=== PATIENT | male | born 1965 | race Caucasian/White ===

== ENCOUNTER 2016-09-22 19:15 | Inpatient (IN) | payer OTHER, MEDICAID ==
[~2016-09-22] VITALS: Ht 177.8 cm; Wt 68.3 kg
[2016-09-22 19:18] VITALS: O2SAT 100
[2016-09-22] MEDS ORDERED: DIPHTH/TETANUS/ACEL PERTUSSIS (BOOSTER) 0.5 ML VIAL/PFS IM ONE ×2 (19:19→20:00)
[2016-09-22] MEDS ORDERED: ceFAZolin 2 GM PREMIX 50 ML ONE (19:19)
[2016-09-22] MEDS ORDERED: ONDANSETRON HCL 4 MG/2 ML VIAL ONE (19:21)
[2016-09-22] MEDS ORDERED: MORPHINE SULFATE 8 MG/ML INJ ONE (19:21)
[2016-09-22] MEDS ORDERED: IOHEXOL 350 MG/ML 10 ML VIAL (for RAD DIAG) IV ONE (19:34)
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
[2016-09-22 19:39] LABS: I-STAT POTASSIUM 2.8 MMOL/L (3.5-4.9)
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
[2016-09-22 19:45] LABS: AUTOMATED NEUTROPHIL # 8.8 TH/MM3 (1.8-7.7); BASOPHIL # 0.1 TH/MM3 (0-0.2); BASOPHIL % 0.5 % (0.0-2.0); EOSINOPHIL # 0.2 TH/MM3 (0-0.4); EOSINOPHIL % 1.1 % (0.0-4.0); HEMATOCRIT 39.5 % (39.0-51.0); HEMO FLAGS DIFF FINAL; LYMPH % 27.8 % (9.0-44.0); LYMPHOCYTE # 3.8 TH/MM3 (1.0-4.8); MEAN CELL VOLUME 86.7 FL (80.0-100.0); MEAN CORPUSCULAR HEMOGLOBIN 30.2 PG (27.0-34.0); MEAN CORPUSCULAR HGB CONC 34.9 % (32.0-36.0); MONO % 5.9 % (0.0-8.0); NEUT % 64.7 % (16.0-70.0); PLATELET COUNT 452 TH/MM3 (150-450); RED BLOOD COUNT 4.55 MIL/MM3 (4.50-5.90); RED CELL DISTRIBUTION WIDTH 13.7 % (11.6-17.2); WHITE BLOOD COUNT 13.6 TH/MM3 (4.0-11.0)
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
[2016-09-22 20:00] VITALS: BP 138/76; PULSE 52; RESP 24; TEMP 96.3; O2SAT 97
[2016-09-22] MEDS ORDERED: SODIUM CHLOR 0.9% 1000 ML INJ 1,000 ML IV ONE (20:00)
[2016-09-22] MEDS ORDERED: ceFAZolin 2 GM PREMIX 50 ML IV STA (20:00)
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
[2016-09-22] MEDS ORDERED: PROPOFOL 1000 MG/100 ML INJ 100 ML ONE (20:12)
[2016-09-22] MEDS ORDERED: MIDAZOLAM HCL 5 MG/ML VIAL (1 ML) ONE (20:12)
[2016-09-22 20:18] LABS: APTT (PATIENT) 26.3 SEC (24.3-30.1)
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
[2016-09-22 21:52] LABS: BLOOD, URINE NEG (NEG); GLUCOSE,URINE NEG (NEG); KETONE, URINE NEG (NEG); MUCUS URINE FEW /lpf (OCC); NITRITE,URINE NEG (NEG); PH, URINE 5.5 (5.0-8.5); URINE COLOR LIGHT-YELLOW (YELLW/STRAW)
[2016-09-22 21:53] LABS: COMMENT (UR) CATH-CULT NOT IND; CULTURE IF INDICATED CATH CULTURE NOT IND
[2016-09-22 21:54] LABS: AMPHETAMINE, URINE NEG (NEG); BARBITURATES, URINE NEG (NEG); COCAINE, URINE NEG (NEG)
[2016-09-22 22:00] VITALS: PULSE 52
[2016-09-22] MEDS: SODIUM CHLOR 0.9% 1000 ML INJ 1,000 ML IV SCH (22:32)
[2016-09-22] MEDS ORDERED: fentaNYL DRIP 250 ML IV SCH (22:45)
[2016-09-22] MEDS ORDERED: Post-op Orders (for Pharmacy) MISC XX ONE (22:45)
[2016-09-22] MEDS ORDERED: NALOXONE HCL 0.4 MG/ML AMP IV PRN (22:45)
[2016-09-22] MEDS ORDERED: PROPOFOL 1000 MG/100 ML INJ 100 ML IV SCH (22:45)
[2016-09-22] MEDS ORDERED: SODIUM CHLORIDE 0.9% FLUSH 5 ML FLUSH IVF PRN (22:45)
[2016-09-22] MEDS: PANTOPRAZOLE SODIUM 40 MG VIAL IV SCH (23:00)
[2016-09-23] VITALS (18 sets, daily range): BP systolic 106–146; BP diastolic 63–82; PULSE 48–69; RESP 16–19; TEMP 96.8–98.6; O2SAT 98–100
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
[2016-09-23] MEDS ORDERED: POTASSIUM PHOSPHATE MONOBASIC 500 MG TAB PO/TUBE PRN (00:30)
[2016-09-23] MEDS ORDERED: MAGNESIUM OXIDE 400 MG TAB PO PRN (00:30)
[2016-09-23] MEDS ORDERED: POTASSIUM CHLOR 20 MEQ PREMIX 100 ML IV PRN ×2 (00:30)
[2016-09-23] MEDS ORDERED: POTASSIUM PHOSPHATE MONOBASIC 500 MG TAB PO PRN (00:30)
[2016-09-23] MEDS ORDERED: MAGNESIUM SULFATE INJ 4 GM in SODIUM CHLORIDE 0.9% INJ 92 ML IV PRN (00:30)
[2016-09-23] MEDS ORDERED: POTASSIUM CHLOR 40 MEQ PREMIX 100 ML IV PRN ×2 (00:30)
[2016-09-23] MEDS ORDERED: MAGNESIUM SULFATE INJ 2 GM in SODIUM CHLORIDE 0.9% INJ 96 ML IV PRN (00:30)
[2016-09-23 01:19] LABS: ALT (GPT) 29 U/L (12-78); ANION GAP 11 MEQ/L (5-15); AST (GOT) 45 U/L (15-37); BICARBONATE 24.4 MEQ/L (21.0-32.0); BLOOD UREA NITROGEN 10 MG/DL (7-18); CHLORIDE 106 MEQ/L (98-107); GLOMERULAR FILTRATION RATE 108 ML/MIN (>89); POTASSIUM 3.2 MEQ/L (3.5-5.1); SODIUM (NA) 141 MEQ/L (136-145)
[2016-09-23 01:20] LABS: ALKALINE PHOSPHATASE 51 U/L (45-117); TOTAL BILIRUBIN ADULT 0.4 MG/DL (0.2-1.0)
[2016-09-23] MEDS ORDERED: RESP: ALBUTEROL 2.5 MG/3 ML NEB (PRN) NEB (01:30)
[2016-09-23 01:54] LABS: BLOOD GAS BASE EXCESS 0.1 mmol/L (-2-2); BLOOD GAS CARBOXYHEMOGLOBIN 1.9 % (0-4); BLOOD GAS HCO3 25 mmol/L (22-26); BLOOD GAS METHEMOGLOBIN 0.8 % (0-2); BLOOD GAS O2 HGB SATURATION 97 % (90-100); BLOOD GAS OXYGEN CONTENT 17.7 Vol % (12.0-20.0); BLOOD GAS PCO2 42 mmHg (38-42); BLOOD GAS PO2 155 mmHg (61-120); BLOOD GAS TOTAL HGB 12.8 G/DL (12.0-16.0); CRITICAL VALUE NO; OXYGEN DEVICE VENTILATOR; TEMP CORR TO 98.6
[2016-09-23 01:55] LABS: DRAW SITE LT RADIAL; FIO2 45 %; NUMBER OF ARTERIAL PUNCTURES 1; STAT YES; ULNAR PULSE PRESENT; VENT SETTINGS VAC16/550/PEEP5
[2016-09-23 02:00] LABS: CREATINE KINASE 990 U/L (39-308)
[2016-09-23] MEDS: AMPICILLIN-SULBACTAM INJ 1,500 MG in SODIUM CHLORIDE 0.9% INJ 100 ML IV SCH ×4 (02:00→21:02)
[2016-09-23] MEDS ORDERED: DEXTROSE 50% IN WATER 50 ML VIAL(D50) IV PUSH PRN (02:00)
[2016-09-23] MEDS ORDERED: GLUCAGON 1 MG/ML VIAL OTHER PRN (02:00)
[2016-09-23 02:30] LABS: CKMB 11.1 NG/ML (0.5-3.6)
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
[2016-09-23] MEDS: RESP: ALBUTEROL 2.5 MG/IPRATROPIUM 0.5 MG NEB (SCH) NEB ×4 (03:56→20:04)
[2016-09-23 04:32] LABS: BICARBONATE 26.2 MEQ/L (21.0-32.0); POTASSIUM 3.7 MEQ/L (3.5-5.1)
[2016-09-23 04:35] LABS: INDIRECT BILIRUBIN 0.3 MG/DL (0.0-0.8); TOTAL BILIRUBIN ADULT 0.4 MG/DL (0.2-1.0)
[2016-09-23 04:47] LABS: AUTOMATED NEUTROPHIL # 14.8 TH/MM3 (1.8-7.7); BASOPHIL % 0.2 % (0.0-2.0); EOSINOPHIL % 0.2 % (0.0-4.0); HEMATOCRIT 39.7 % (39.0-51.0); HEMO FLAGS DIFF FINAL; LYMPH % 7.3 % (9.0-44.0); LYMPHOCYTE # 1.3 TH/MM3 (1.0-4.8); MEAN CELL VOLUME 89.3 FL (80.0-100.0); MEAN CORPUSCULAR HGB CONC 33.6 % (32.0-36.0); MONO % 9.2 % (0.0-8.0); NEUT % 83.1 % (16.0-70.0); PLATELET COUNT 282 TH/MM3 (150-450); RED BLOOD COUNT 4.44 MIL/MM3 (4.50-5.90); WHITE BLOOD COUNT 17.8 TH/MM3 (4.0-11.0)
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
[2016-09-23] MEDS: SODIUM CHLOR 0.9% 1000 ML INJ 1,000 ML IV SCH ×3 (07:11→23:11)
[2016-09-23] MEDS: INSULIN ASPART SUPPLEMENTAL SCALE SQ SCH ×3 (08:00→18:00)
[2016-09-23] MEDS: CHLORHEXIDINE 0.12% (ORAL KIT) 15 ML CUP MT SCH ×2 (08:00→21:03)
[2016-09-23] MEDS: fentaNYL DRIP 250 ML IV SCH (08:25)
[2016-09-23] MEDS: PROPOFOL 1000 MG/100 ML INJ 100 ML IV SCH ×4 (08:25→22:50)
[2016-09-23] MEDS: DOCUSATE SODIUM 50 MG/SENNA 8.6 MG TAB PO SCH ×2 (08:28→21:03)
[2016-09-23] MEDS: SODIUM CHLORIDE 0.9% FLUSH 5 ML FLUSH IVF SCH ×2 (08:28→21:03)
[2016-09-23] MEDS ORDERED: SENNOSIDES SYRUP 8.8 MG/5 ML CUP TUBE SCH (09:00)
[2016-09-23] MEDS ORDERED: DEXAMETHASONE SOD PHOS 4 MG/ML VIAL IV ONE (09:00)
[2016-09-23] MEDS ORDERED: DOCUSATE SODIUM 100 MG/10 ML UDC PO SCH (09:00)
--- NOTE | 2016-09-23 10:31 | OTSOAPIP ---
TIME SESSION COMPLETED: 1000 NURSING REQUESTED TO HOLD PATIENT HAS STRICT SPINAL PRECAUTIONS AND IS SCHEDULED FOR OPERATING ROOM TODAY. Therapist: Leslie Santoyo OTR/L Signature on file
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
--- NOTE | 2016-09-23 14:43 | EKG ---
Date Performed: 09/23/2016 Time Performed: 07:54:20 PTAGE: 89 years EKG: Sinus rhythm Septal T wave changes are nonspecific Borderline ECG NO PREVIOUS TRACING DOCTOR: Jacoby Denis Interpretating Date/Time 09/23/2016 14:39:26
--- NOTE | 2016-09-23 17:42 | EC ---
Study Study Date:09/23/2016 STUDY CONCLUSIONS SUMMARY LEFT VENTRICLE: The cavity size was normal. Wall thickness was normal. Systolic function was normal. The estimated ejection fraction was in the range of 55% to 60%. Wall motion was normal; there were no regional wall motion abnormalities. If LV function is below 40, please consider prescribing an ACEI or ARB or document rationale for non-use. PROCEDURE DATA STUDY STATUS: Elective. Procedure: Transthoracic echocardiography. Image quality was suboptimal. The study was technically limited due to poor acoustic window availability. Scanning was performed from the parasternal, apical, and subcostal acoustic windows. Study completion: The patient tolerated the procedure well. Transthoracic echocardiography. M-mode, complete 2D, complete spectral Doppler, and color Doppler. Patient status: Inpatient. CARDIAC ANATOMY LEFT VENTRICLE: The cavity size was normal. Wall thickness was normal. Systolic function was normal. The estimated ejection fraction was in the range of 55% to 60%. Wall motion was normal; there were no regional wall motion abnormalities. AORTIC VALVE: Trileaflet; normal thickness leaflets. Doppler: Transvalvular velocity was within the normal range. There was no stenosis. No regurgitation. AORTA: Aortic root: The aortic root was normal in size. MITRAL VALVE: Structurally normal valve. Doppler: Transvalvular velocity was within the normal range. There was no evidence for stenosis. Trace regurgitation. Valve area by pressure half-time: 4.15cm^2. Peak gradient: 2mm Hg (D). LEFT ATRIUM: The atrium was normal in size. RIGHT VENTRICLE: The cavity size was normal. Wall thickness was normal. PULMONIC VALVE: Doppler: Transvalvular velocity was within the normal range. There was no evidence for stenosis. No regurgitation. TRICUSPID VALVE: Structurally normal valve. Doppler: Transvalvular velocity was within the normal range. Trace regurgitation. PULMONARY ARTERY: The main pulmonary artery was normal-sized. Systolic pressure was within the normal range. RIGHT ATRIUM: The atrium was normal in size. PERICARDIUM: There was no pericardial effusion. SYSTEMIC VEINS: Inferior vena cava: The vessel was normal in size. BASIC MEASUREMENTS ADULT Normal Left ventricle LV internal dimension, ED, chordal level, 47.3 mm 43-52 PLAX LV internal dimension, ES, chordal level, 34.7 mm 23-38 PLAX Fractional shortening, chordal level, PLAX *27 % >29 LV posterior wall thickness, ED 9.05 mm IVS/LVPW ratio, ED 1 <1.3 Ventricular septum Septal thickness, ED 9.07 mm Aortic valve Leaflet separation 16 mm 15-26 Right ventricle RV internal dimension, ED, PLAX 23.5 mm 19-38 BASIC MEASUREMENTS ADULT Normal Left ventricle LV internal dimension, ED 44.9 mm 37-56 LV internal dimension, ES 31.3 mm Fractional shortening 30 % 29-45 LV posterior wall, ED *12.6 mm 6-11 Septal/posterior wall ratio, ED 1 Relative wall thickness, ED *0.56 <0.45 Volume, ED, Teichholz 92 ml Volume, ES, Teichholz 38.8 ml Ejection fraction, Teichholz *57.8 % 64-83 Stroke volume, Teichholz 53.2 ml Wall mass 211.9 g Ventricular septum Septal thickness, ED 12.6 mm Aortic valve Leaflet separation 16 mm 15-26 Aorta Root diameter, ED 35 mm 20-37 DOPPLER MEASUREMENTS ADULT Normal Aortic valve Peak velocity, S 97.7 cm/s Mitral valve Peak E-wave velocity 75 cm/s Peak A-wave velocity 45.9 cm/s Pressure half-time 53 ms Peak gradient, D 2 mm Hg Peak E/A ratio 1.6 Valve area, pressure half-time 4.15 cm^2 Pulmonic valve Peak velocity, S 93.7 cm/s LEGEND: Mean values are shown as u=mean value. Asterisk (*) villanueva values outside specified normal range. Prepared and signed by Yossi Oscar [id number]
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
--- NOTE | 2016-09-23 19:54 | PD.OP ---
Operative Report Date of Surgery: Sep 23, 2016 Preoperative Diagnosis: (1) Traumatic brain injury (2) Cervical spine fracture Postoperative Diagnosis: (1) Traumatic brain injury (2) Cervical spine fracture Procedure: Halo placement Surgeon: Dwain Garcia Emergency Man(s): development technical lead Operation and Findings: The procedure was performed in the surgical intensive care unit Telephone consent was obtained from the patient's family Appropriate time out procedure was performed with all personal present and in agreement The bilateral occipital region was shaved with the clippers and the frontal and occipital regions sterilely prepped with Betadine. 1% Xylocaine with epinephrine was used for local infiltration with the pin placement sites The undersigned maintained control of the head ring which was held in proper position and see frontal and occipital pins were simultaneously advanced into the cranium using finger pressure, followed by final tightening with the torque wrench. The locking nuts were secured. With the undersigned maintaining control of the head and neck in the cervical collar in place, the patient's head and chest were gently lifted to allow placement of the posterior halo vest. The anterior vest was then secured. The posts were then placed into the anterior and posterior halo vest and ring and secured with the torque wrench with the undersigned maintaining control of the head and neck The position of the head and neck were then checked with x-ray and felt to be satisfactory. Final check was made of all halo connections to certain that they were secure. There is no blood loss. No specimen was sent The patient's neurologic function remained stable following the procedure. Dwain Garcia MD Sep 23, 2016 19:53
[2016-09-23] MEDS: PANTOPRAZOLE SODIUM 40 MG VIAL IV SCH (21:03)
[2016-09-23] MEDS: MAGNESIUM HYDROXIDE SUSP 30 ML CUP PO SCH (21:03)
[2016-09-24] VITALS (19 sets, daily range): BP systolic 91–131; BP diastolic 53–78; PULSE 47–81; RESP 16; TEMP 97–98.5; O2SAT 40–100
[2016-09-24] MEDS: AMPICILLIN-SULBACTAM INJ 1,500 MG in SODIUM CHLORIDE 0.9% INJ 100 ML IV SCH ×4 (02:00→20:00)
[2016-09-24] MEDS: PROPOFOL 1000 MG/100 ML INJ 100 ML IV SCH ×4 (02:50→16:04)
[2016-09-24] MEDS: RESP: ALBUTEROL 2.5 MG/IPRATROPIUM 0.5 MG NEB (SCH) NEB ×4 (03:22→22:00)
[2016-09-24 04:06] LABS: AUTOMATED NEUTROPHIL # 8.2 TH/MM3 (1.8-7.7); BASOPHIL % 0.2 % (0.0-2.0); EOSINOPHIL % 0.1 % (0.0-4.0); HEMATOCRIT 33.2 % (39.0-51.0); HEMO FLAGS DIFF FINAL; LYMPH % 13.7 % (9.0-44.0); LYMPHOCYTE # 1.5 TH/MM3 (1.0-4.8); MEAN CELL VOLUME 88.5 FL (80.0-100.0); MEAN CORPUSCULAR HEMOGLOBIN 30.4 PG (27.0-34.0); MEAN CORPUSCULAR HGB CONC 34.3 % (32.0-36.0); MONO % 11.3 % (0.0-8.0); NEUT % 74.7 % (16.0-70.0); PLATELET COUNT 280 TH/MM3 (150-450); RED BLOOD COUNT 3.75 MIL/MM3 (4.50-5.90); RED CELL DISTRIBUTION WIDTH 14.2 % (11.6-17.2); WHITE BLOOD COUNT 10.9 TH/MM3 (4.0-11.0)
[2016-09-24 04:25] LABS: APTT (PATIENT) 27.8 SEC (24.3-30.1); PROTHROMBIN TIME - PATIENT 10.9 SEC (9.8-11.6)
[2016-09-24 04:31] LABS: ANION GAP 6 MEQ/L (5-15); AST (GOT) 30 U/L (15-37); BICARBONATE 28.1 MEQ/L (21.0-32.0); BLOOD UREA NITROGEN 7 MG/DL (7-18); CHLORIDE 110 MEQ/L (98-107); GLOMERULAR FILTRATION RATE 141 ML/MIN (>89); MAGNESIUM 2.3 MG/DL (1.5-2.5); POTASSIUM 3.9 MEQ/L (3.5-5.1); SODIUM (NA) 144 MEQ/L (136-145)
[2016-09-24 04:34] LABS: ALKALINE PHOSPHATASE 39 U/L (45-117); ALT (GPT) 22 U/L (12-78); TOTAL BILIRUBIN ADULT 0.3 MG/DL (0.2-1.0)
--- NOTE | 2016-09-24 05:06 | RADRPT ---
EXAM DATE/TIME: 09/24/2016 03:47 [facility] COMPARISON: CHEST SINGLE AP, September 22, 2016, 19:13. INDICATIONS : Shortness of breath. MEDICAL HISTORY : None. SURGICAL HISTORY : None. ENCOUNTER: Initial ACUITY: 3 days PAIN SCORE: Non-responsive. LOCATION: Bilateral chest FINDINGS: Single AP view of the chest. Endotracheal tube is in place with the tip 5 cm above the jace. Nasoga stric tube is in place with the tip in the stomach. Mild medial left lung base atelectasis. Lungs are otherwise clear. Cardiomediastinal silhouette within normal limits. No evidence of pleural effusion or pneumothorax. CONCLUSION: Endotracheal tube and nasogastric tube in place. Mild left lung atelectasis. Frederick Birch MD on September 24, 2016 at 5:02 Board Certified Radiologist. This report was verified electronically.
[2016-09-24 05:18] LABS: BLOOD GAS BASE EXCESS 1.3 mmol/L (-2-2); BLOOD GAS CARBOXYHEMOGLOBIN 0.8 % (0-4); BLOOD GAS HCO3 26 mmol/L (22-26); BLOOD GAS METHEMOGLOBIN 0.9 % (0-2); BLOOD GAS O2 HGB SATURATION 98 % (90-100); BLOOD GAS OXYGEN CONTENT 15.9 Vol % (12.0-20.0); BLOOD GAS PCO2 43 mmHg (38-42); BLOOD GAS PO2 187 mmHg (61-120); BLOOD GAS TOTAL HGB 11.3 G/DL (12.0-16.0); CRITICAL VALUE NO; OXYGEN DEVICE VENTILATOR; TEMP CORR TO 98.6
[2016-09-24 05:19] LABS: DRAW SITE RT RADIAL; FIO2 40 %; NUMBER OF ARTERIAL PUNCTURES 1; STAT NO; ULNAR PULSE PRESENT; VENT SETTINGS PRVC/AC
[2016-09-24] MEDS: INSULIN ASPART SUPPLEMENTAL SCALE SQ SCH ×4 (06:00→18:00)
[2016-09-24] MEDS: CHLORHEXIDINE 0.12% (ORAL KIT) 15 ML CUP MT SCH ×2 (08:00→20:00)
[2016-09-24] MEDS: SODIUM CHLORIDE 0.9% FLUSH 5 ML FLUSH IVF SCH ×2 (08:42→21:00)
[2016-09-24] MEDS ORDERED: LACTATED RINGER'S 1000 ML INJ 1,000 ML IV ONE (11:43)
[2016-09-24] MEDS ORDERED: NORMOSOL R INJ 1,000 ML IV ONE (11:43)
[2016-09-24] MEDS ORDERED: PROPOFOL 200 MG/20 ML AMP IV ONE (11:43)
--- NOTE | 2016-09-24 12:21 | RADRPT ---
EXAM DATE/TIME: 09/24/2016 10:45 [facility] COMPARISON: CT FACIAL BONES W/O CONTRAST, September 22, 2016, 19:26. CT CERVICAL SPINE W/O CONTRAST, September 22, 2016, 19:29. CT BRAIN W/O CONTRAST, September 22, 2016, 19:26. INDICATIONS : Evaluate brain injury RADIATION DOSE: 72.72 CTDIvol (mGy) MEDICAL HISTORY : Non-responsive. SURGICAL HISTORY : Non-responsive. ENCOUNTER: Subsequent ACUITY: 1 day PAIN SCALE: Non-responsive LOCATION: cranial TECHNIQUE: Multiple contiguous axial images were obtained of the head. Using automated exposure control and adj ustment of the mA and/or kV according to patient size, radiation dose was kept as low as reasonably a chievable to obtain optimal diagnostic quality images. FINDINGS: There continues to be a right subdural hemorrhage measuring up to 9 mm in thickness. This is seen al sadi the right lateral frontal region and extends to the inferior aspect of the right frontal lobe. T his was present previously. It is slightly larger on the current exam. The ventricles and cortical sulci are within normal limits. No new areas of hemorrhage are seen. The basal cisterns are patent. The patient is in a halo causing some streak artifact. There is fracturing of the maxillary bones bilaterally. The maxillary bones are nearly totally opacified. There is a right orbital floor fract ure. There is fracturing of the right zygomatic arch. There is a fracture of the right squamosal te mporal bone. It is nondisplaced. CONCLUSION: 1. Persistent extraaxial hemorrhage seen over the right lateral frontal lobe and extending to the un sarah surface of the posterior frontal lobe. This appears slightly larger on the current exam measurin g up to 9 mm. There is some fracturing of the squamosal temporal bone in this region. Given the fra cture, some component of an epidural hemorrhage cannot be excluded. 2. No new areas of hemorrhage or mass effect are seen. 3. Facial fractures. Jens Sheldon MD on September 24, 2016 at 12:05 Board Certified Radiologist. This report was verified electronically.
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
--- NOTE | 2016-09-24 14:02 | OTSOAPIP ---
NIMA ZELAYA REQUESTS TO HOLD PATIENT GOING TO OR THIS PM. WILL REATTEMPT TOMORROW. Therapist: Leslie Santoyo OTR/L Signature on file
[2016-09-24] MEDS: SODIUM CHLOR 0.9% 1000 ML INJ 1,000 ML IV SCH ×2 (15:11→23:11)
[2016-09-24] MEDS: fentaNYL DRIP 250 ML IV SCH (16:05)
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
[2016-09-24] MEDS ORDERED: methylPREDNISolone SOD SUCC 125 MG/2 ML VIAL ONE (20:55)
[2016-09-24] MEDS ORDERED: BACITRACIN TOP OINT 15 GM TUBE ONE (20:55)
[2016-09-24] MEDS ORDERED: LIDOCAINE 2%/EPINEPHrine 1:100,000 30ML MDV ONE (20:55)
[2016-09-24] MEDS ORDERED: ceFAZolin INJ 1,000 MG VIAL ONE (20:55)
[2016-09-24] MEDS ORDERED: MICROFIBRILLAR COLLAGEN HEMOSTAT 1 GM PKT ONE (20:55)
[2016-09-24] MEDS: DOCUSATE SODIUM 50 MG/SENNA 8.6 MG TAB PO SCH (21:00)
[2016-09-24] MEDS: MAGNESIUM HYDROXIDE SUSP 30 ML CUP PO SCH (21:00)
[2016-09-24] MEDS ORDERED: CHLORHEXIDINE GLUCONATE 0.12% 30 ML CUP ONE (21:37)
[2016-09-24] MEDS ORDERED: BALANCED SALT SOLN OPHT IRRIG 15 ML BTL ONE (21:37)
[2016-09-24] MEDS ORDERED: fentaNYL CITRATE 250 MCG/5 ML AMP ONE (22:33)
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
[2016-09-24] MEDS: PANTOPRAZOLE SODIUM 40 MG VIAL IV SCH (23:00)
[2016-09-25] VITALS (17 sets, daily range): BP systolic 106–130; BP diastolic 48–63; PULSE 65–84; RESP 12–16; TEMP 97–98.7; O2SAT 94–99
[2016-09-25] MEDS ORDERED: MICROFIBRILLAR COLLAGEN HEMOSTAT 1 GM PKT TOPICAL ONE (01:05)
--- NOTE | 2016-09-25 01:42 | HHI.PR ---
Immediate Post Op Note Procedure Date: Sep 25, 2016 Pre Op Diagnosis: [place] 1 maxillary fracture right orbital floor fracture right ZMC fracture nasal bone fractures Post Op Diagnosis: luis e Surgeon: Isael Lindsey Fuel Management Handler(s): zulema perez Procedure: ORIF [place] 1 maxillary fracture ORIF R zmc fracture reconstruction of right orbital floor fracture with KLS resorbable mesh closed reduction of nasal bone fractures Anesthesia: General, Local (2%lidocaine with 1:000,000 epix 7 cc) Drains: None Patient to: ISC Implant/Devices: SEE IMPLANT LOG (if applicable) Date/Time of Procedure: SEE SURGICAL CARE RECORD Isael Lindsey DMD Sep 25, 2016 01:42
[2016-09-25] MEDS ORDERED: fentaNYL CITRATE 250 MCG/5 ML AMP ONE (01:44)
[2016-09-25] MEDS: AMPICILLIN-SULBACTAM INJ 1,500 MG in SODIUM CHLORIDE 0.9% INJ 100 ML IV SCH ×4 (02:00→20:00)
[2016-09-25] MEDS: methylPREDNISolone SOD SUCC 125 MG/2 ML VIAL IV SCH ×3 (03:00→15:47)
[2016-09-25] MEDS: RESP: ALBUTEROL 2.5 MG/IPRATROPIUM 0.5 MG NEB (SCH) NEB ×4 (03:10→19:30)
[2016-09-25] MEDS ORDERED: methylPREDNISolone ACETATE 80 MG/ML VIAL IM ONE (04:00)
[2016-09-25 04:44] LABS: AUTOMATED NEUTROPHIL # 13.3 TH/MM3 (1.8-7.7); BASOPHIL % 0.1 % (0.0-2.0); HEMATOCRIT 31.7 % (39.0-51.0); HEMO FLAGS DIFF FINAL; LYMPH % 4.5 % (9.0-44.0); LYMPHOCYTE # 0.7 TH/MM3 (1.0-4.8); MEAN CELL VOLUME 87.8 FL (80.0-100.0); MEAN CORPUSCULAR HEMOGLOBIN 29.7 PG (27.0-34.0); MEAN CORPUSCULAR HGB CONC 33.8 % (32.0-36.0); MONO % 4.3 % (0.0-8.0); NEUT % 91.1 % (16.0-70.0); PLATELET COUNT 270 TH/MM3 (150-450); RED BLOOD COUNT 3.61 MIL/MM3 (4.50-5.90); RED CELL DISTRIBUTION WIDTH 14.3 % (11.6-17.2); WHITE BLOOD COUNT 14.6 TH/MM3 (4.0-11.0)
[2016-09-25 05:07] LABS: ANION GAP 7 MEQ/L (5-15); AST (GOT) 28 U/L (15-37); BICARBONATE 25.9 MEQ/L (21.0-32.0); BLOOD UREA NITROGEN 7 MG/DL (7-18); CHLORIDE 112 MEQ/L (98-107); MAGNESIUM 2.1 MG/DL (1.5-2.5); POTASSIUM 3.7 MEQ/L (3.5-5.1); SODIUM (NA) 145 MEQ/L (136-145)
[2016-09-25 05:12] LABS: ALKALINE PHOSPHATASE 36 U/L (45-117); ALT (GPT) 20 U/L (12-78); GLOMERULAR FILTRATION RATE 136 ML/MIN (>89); TOTAL BILIRUBIN ADULT 0.3 MG/DL (0.2-1.0)
[2016-09-25 05:57] LABS: BLOOD GAS BASE EXCESS 0.8 mmol/L (-2-2); BLOOD GAS HCO3 25 mmol/L (22-26); BLOOD GAS O2 HGB SATURATION 96 % (90-100); BLOOD GAS OXYGEN CONTENT 14.3 Vol % (12.0-20.0); BLOOD GAS PCO2 39 mmHg (38-42); BLOOD GAS PO2 93 mmHg (61-120); BLOOD GAS TOTAL HGB 10.5 G/DL (12.0-16.0); CRITICAL VALUE NO; OXYGEN DEVICE VENTILATOR; TEMP CORR TO 98.6
[2016-09-25 05:58] LABS: DRAW SITE ART LINE; FIO2 40 %; STAT NO; ULNAR PULSE PRESENT
[2016-09-25] MEDS: INSULIN ASPART SUPPLEMENTAL SCALE SQ SCH ×4 (06:00→17:46)
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
[2016-09-25] MEDS: SODIUM CHLOR 0.9% 1000 ML INJ 1,000 ML IV SCH ×3 (07:11→23:11)
[2016-09-25] MEDS: CHLORHEXIDINE 0.12% (ORAL KIT) 15 ML CUP MT SCH ×2 (08:00→20:00)
--- NOTE | 2016-09-25 08:03 | HHI.PR ---
Subjective Remarks POD 1 s/p ORIF [place] 1 maxillary fracture/right zmc fracture reconstruction of right orbital floor fracture with mesh closed reduction of nasal bone fractures pt seen and examined., trached, vented, sedated c collar/halo in palace Objective Vital Signs Date Time Temp Pulse Resp B/P Pulse Ox O2 Delivery O2 Flow Rate FiO2 09/25/16 07:15 97 40 09/25/16 06:00 72 09/25/16 04:21 96 40 09/25/16 04:00 70 09/25/16 04:00 40 09/25/16 04:00 97.0 70 16 108/48 96 09/25/16 02:01 96 40 09/25/16 02:00 68 09/24/16 21:00 60 09/24/16 20:50 100 100 09/24/16 20:27 100 40 09/24/16 20:00 54 09/24/16 20:00 40 09/24/16 20:00 97.8 54 16 131/78 100 09/24/16 20:00 Mechanical Ventilator 09/24/16 18:00 54 09/24/16 16:17 100 40 09/24/16 16:00 97.9 55 16 107/63 100 09/24/16 16:00 40 09/24/16 16:00 55 09/24/16 14:00 53 09/24/16 12:00 98.2 56 16 91/53 100 09/24/16 12:00 56 09/24/16 12:00 40 09/24/16 12:00 100 40 09/24/16 10:30 100 100 09/24/16 10:00 81 09/24/16 09:30 40 40 09/24/16 08:00 97.0 52 16 102/68 100 09/24/16 08:00 51 09/24/16 08:00 40 I/O 09/24/16 09/24/16 09/24/16 09/25/16 09/25/16 09/25/16 07:00 15:00 23:00 07:00 15:00 23:00 Intake Total 1106 ml 2012 ml 921 ml 506 ml Output Total 300 ml 550 ml 250 ml 550 ml Balance 806 ml 1463 ml 671 ml -44 ml Intake IV Total 1106 ml 2012 ml 921 ml 506 ml Output Urine Total 300 ml 425 ml 250 ml 550 ml Stool Total 0 ml Gastric Drainage Total 0 ml 125 ml 0 ml 0 ml # Bowel Movements 0 0 0 Result Diagram: 09/25/1642909/25/16429 Objective Remarks b/l periorbital edema, right side greater than left right sided periorbital ecchymosis, eye swollen shut, chemosis noted facial edema nasal splint/reduction in position intraorally - tissues pink/well perfused all wound margins well approximated/sutures intact hemostatic all wounds Assessment and Plan Assessment and Plan POD 1 s/p ORIF [place] 1 maxillary fracture/right zmc fracture reconstruction of right orbital floor fracture with mesh closed reduction of nasal bone fractures continue supportive care, abx peridex oral care Isael Lindsey DMD Sep 25, 2016 08:03
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
[2016-09-25] MEDS: SODIUM CHLORIDE 0.9% FLUSH 5 ML FLUSH IVF SCH ×2 (08:22→21:00)
[2016-09-25] MEDS: DOCUSATE SODIUM 50 MG/SENNA 8.6 MG TAB PO SCH ×2 (08:22→21:00)
[2016-09-25] MEDS: SODIUM PHOSPHATE INJ 30 MMOL in SODIUM CHLOR 0.9% 250 ML INJ 240 ML IV PRN (09:09)
[2016-09-25] MEDS ORDERED: GELATIN 12 MM/7 MM FOAM ONE (10:07)
[2016-09-25] MEDS ORDERED: GELFOAM SIZE 100 TOPICAL ONE (10:15)
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
[2016-09-25] MEDS: PROPOFOL 1000 MG/100 ML INJ 100 ML IV SCH (16:47)
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
[2016-09-25] MEDS: MAGNESIUM HYDROXIDE SUSP 30 ML CUP PO SCH (21:00)
[2016-09-25] MEDS: PANTOPRAZOLE SODIUM 40 MG VIAL IV SCH (23:00)
[2016-09-26] VITALS (18 sets, daily range): BP systolic 93–133; BP diastolic 52–84; PULSE 56–74; RESP 14–16; TEMP 97.9–98.5; O2SAT 96–100
[2016-09-26] MEDS: AMPICILLIN-SULBACTAM INJ 1,500 MG in SODIUM CHLORIDE 0.9% INJ 100 ML IV SCH ×4 (02:00→21:19)
[2016-09-26] MEDS: RESP: ALBUTEROL 2.5 MG/IPRATROPIUM 0.5 MG NEB (SCH) NEB ×3 (03:00→19:59)
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
[2016-09-26 04:48] LABS: AUTOMATED NEUTROPHIL # 16.2 TH/MM3 (1.8-7.7); BASOPHIL % 0.1 % (0.0-2.0); HEMATOCRIT 30.8 % (39.0-51.0); HEMO FLAGS DIFF FINAL; LYMPH % 7.5 % (9.0-44.0); LYMPHOCYTE # 1.4 TH/MM3 (1.0-4.8); MEAN CELL VOLUME 88.5 FL (80.0-100.0); MEAN CORPUSCULAR HEMOGLOBIN 29.3 PG (27.0-34.0); MEAN CORPUSCULAR HGB CONC 33.1 % (32.0-36.0); MONO % 8.5 % (0.0-8.0); NEUT % 83.9 % (16.0-70.0); PLATELET COUNT 244 TH/MM3 (150-450); RED BLOOD COUNT 3.48 MIL/MM3 (4.50-5.90); RED CELL DISTRIBUTION WIDTH 14.3 % (11.6-17.2); WHITE BLOOD COUNT 19.3 TH/MM3 (4.0-11.0)
--- NOTE | 2016-09-26 05:03 | RADRPT ---
EXAM DATE/TIME: 09/26/2016 04:04 [facility] COMPARISON: CHEST SINGLE AP, September 25, 2016, 4:45. INDICATIONS : Shortness of breath. MEDICAL HISTORY : None. SURGICAL HISTORY : None. ENCOUNTER: Subsequent ACUITY: 4 - 6 days PAIN SCORE: Non-responsive. LOCATION: chest FINDINGS: Tracheostomy in satisfactory position. Slight increase in left basilar consolidation atelectasis or l ast day. Minimal right basilar opacity is stable. No pneumothorax. CONCLUSION: 1. Slight increase in left lower lobe atelectasis or consolidation over the last day. Tracheostomy un changed. Vignesh Flores MD on September 26, 2016 at 5:01 Board Certified Radiologist. This report was verified electronically.
[2016-09-26 05:22] LABS: ALKALINE PHOSPHATASE 36 U/L (45-117); ALT (GPT) 20 U/L (12-78); ANION GAP 5 MEQ/L (5-15); AST (GOT) 32 U/L (15-37); BICARBONATE 29.5 MEQ/L (21.0-32.0); BLOOD UREA NITROGEN 11 MG/DL (7-18); CHLORIDE 112 MEQ/L (98-107); GLOMERULAR FILTRATION RATE 141 ML/MIN (>89); MAGNESIUM 2.4 MG/DL (1.5-2.5); POTASSIUM 3.6 MEQ/L (3.5-5.1); SODIUM (NA) 146 MEQ/L (136-145); TOTAL BILIRUBIN ADULT 0.3 MG/DL (0.2-1.0)
[2016-09-26] MEDS: INSULIN ASPART SUPPLEMENTAL SCALE SQ SCH ×4 (06:00→18:00)
[2016-09-26 06:05] LABS: BLOOD GAS BASE EXCESS 1.3 mmol/L (-2-2); BLOOD GAS CARBOXYHEMOGLOBIN 0.9 % (0-4); BLOOD GAS HCO3 25 mmol/L (22-26); BLOOD GAS METHEMOGLOBIN 0.9 % (0-2); BLOOD GAS O2 HGB SATURATION 98 % (90-100); BLOOD GAS OXYGEN CONTENT 14.1 Vol % (12.0-20.0); BLOOD GAS PCO2 35 mmHg (38-42); BLOOD GAS PO2 164 mmHg (61-120); BLOOD GAS TOTAL HGB 10.1 G/DL (12.0-16.0); CRITICAL VALUE NO; OXYGEN DEVICE VENTILATOR; TEMP CORR TO 98.6
[2016-09-26 06:06] LABS: FIO2 40 %; VENT SETTINGS PRVC
[2016-09-26 06:07] LABS: DRAW SITE ART LINE; STAT NO; ULNAR PULSE PRESENT
[2016-09-26] MEDS: SODIUM PHOSPHATE INJ 30 MMOL in SODIUM CHLOR 0.9% 250 ML INJ 240 ML IV PRN (06:28)
[2016-09-26] MEDS: SODIUM CHLOR 0.9% 1000 ML INJ 1,000 ML IV SCH ×3 (07:11→23:11)
[2016-09-26] MEDS: PROPOFOL 1000 MG/100 ML INJ 100 ML IV SCH ×5 (07:43→21:20)
[2016-09-26] MEDS: CHLORHEXIDINE 0.12% (ORAL KIT) 15 ML CUP MT SCH ×2 (07:43→21:19)
[2016-09-26] MEDS: SODIUM CHLORIDE 0.9% FLUSH 5 ML FLUSH IVF SCH ×2 (08:44→21:00)
[2016-09-26] MEDS: DOCUSATE SODIUM 50 MG/SENNA 8.6 MG TAB PO SCH ×2 (08:44→21:19)
[2016-09-26] MEDS ORDERED: BISACODYL 10 MG SUPP RECTAL ONE (08:45)
[2016-09-26] MEDS ORDERED: HALOPERIDOL LACTATE 5 MG/ML AMP IV PUSH ONE (09:00)
[2016-09-26] MEDS ORDERED: HALOPERIDOL LACTATE 5 MG/ML AMP IV PRN (10:30)
[2016-09-26] MEDS: VALPROATE INJ 250 MG in SODIUM CHLORIDE 0.9% INJ 100 ML IV SCH ×2 (11:16→21:19)
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
--- NOTE | 2016-09-26 17:05 | RADRPT ---
EXAM DATE/TIME: 09/26/2016 16:43 [facility] COMPARISON: CT LUMBAR SPINE W/O CONTRAST, September 22, 2016, 19:34. INDICATIONS : Nasogastric tube placement. MEDICAL HISTORY : Unobtainable. SURGICAL HISTORY : Unobtainable. ENCOUNTER: Initial ACUITY: 1 day PAIN SCORE: Non-responsive. LOCATION: Bilateral abdomen. FINDINGS: Examination of the abdomen demonstrates a normal bowel gas pattern. There is a Dobbhoff tube in the upper stomach. No free air is identified. No organomegaly is evident. There is a compression deformi ty at L2. CONCLUSION: No evidence of obstruction. Dobbhoff tube in the upper stomach. Jens Sheldon MD on September 26, 2016 at 17:03 Board Certified Radiologist. This report was verified electronically.
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
[2016-09-26] MEDS: PANTOPRAZOLE SODIUM 40 MG VIAL IV SCH (21:20)
[2016-09-26] MEDS: MAGNESIUM HYDROXIDE SUSP 30 ML CUP PO SCH (21:20)
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
[2016-09-27] VITALS (18 sets, daily range): BP systolic 104–112; BP diastolic 61–68; PULSE 54–78; RESP 14; TEMP 98–99.8; O2SAT 95–100
[2016-09-27] MEDS: RESP: ALBUTEROL 2.5 MG/IPRATROPIUM 0.5 MG NEB (SCH) NEB ×4 (01:06→20:17)
[2016-09-27] MEDS: AMPICILLIN-SULBACTAM INJ 1,500 MG in SODIUM CHLORIDE 0.9% INJ 100 ML IV SCH ×4 (02:19→20:42)
[2016-09-27] MEDS: fentaNYL DRIP 250 ML IV SCH ×2 (02:19→11:07)
[2016-09-27] MEDS: PROPOFOL 1000 MG/100 ML INJ 100 ML IV SCH ×6 (02:21→20:44)
[2016-09-27] MEDS: INSULIN ASPART SUPPLEMENTAL SCALE SQ SCH ×4 (06:00→16:21)
[2016-09-27 06:17] LABS: AUTOMATED NEUTROPHIL # 8.8 TH/MM3 (1.8-7.7); BASOPHIL % 0.2 % (0.0-2.0); EOSINOPHIL # 0.1 TH/MM3 (0-0.4); EOSINOPHIL % 0.6 % (0.0-4.0); HEMATOCRIT 32.2 % (39.0-51.0); HEMO FLAGS DIFF FINAL; LYMPH % 16.1 % (9.0-44.0); LYMPHOCYTE # 1.9 TH/MM3 (1.0-4.8); MEAN CELL VOLUME 89.8 FL (80.0-100.0); MEAN CORPUSCULAR HEMOGLOBIN 29.6 PG (27.0-34.0); MONO % 7.8 % (0.0-8.0); NEUT % 75.3 % (16.0-70.0); PLATELET COUNT 238 TH/MM3 (150-450); RED BLOOD COUNT 3.59 MIL/MM3 (4.50-5.90); RED CELL DISTRIBUTION WIDTH 14.4 % (11.6-17.2); WHITE BLOOD COUNT 11.7 TH/MM3 (4.0-11.0)
[2016-09-27 06:47] LABS: ALT (GPT) 27 U/L (12-78); ANION GAP 8 MEQ/L (5-15); AST (GOT) 36 U/L (15-37); BICARBONATE 28.5 MEQ/L (21.0-32.0); BLOOD UREA NITROGEN 12 MG/DL (7-18); CHLORIDE 112 MEQ/L (98-107); GLOMERULAR FILTRATION RATE 144 ML/MIN (>89); MAGNESIUM 2.3 MG/DL (1.5-2.5); POTASSIUM 3.3 MEQ/L (3.5-5.1); SODIUM (NA) 148 MEQ/L (136-145)
[2016-09-27 06:50] LABS: ALKALINE PHOSPHATASE 41 U/L (45-117); TOTAL BILIRUBIN ADULT 0.4 MG/DL (0.2-1.0)
--- NOTE | 2016-09-27 07:21 | RADRPT ---
EXAM DATE/TIME: 09/27/2016 04:17 [place] COMPARISON: CHEST SINGLE AP, September 26, 2016, 4:04. INDICATIONS : Shortness of breath. MEDICAL HISTORY : None. SURGICAL HISTORY : None. ENCOUNTER: Subsequent ACUITY: 4 - 6 days PAIN SCORE: Non-responsive. LOCATION: Bilateral chest FINDINGS: Tracheostomy in satisfactory position. Feeding tube tip in the stomach. Mild basilar airspace disease similar to September 26. No new infiltrate or effusion. CONCLUSION: 1. Feeding tube placed with tip in stomach. Tracheostomy unchanged. Basilar airspace disease stable. Vignesh Flores MD on September 27, 2016 at 7:18 Board Certified Radiologist. This report was verified electronically.
[2016-09-27] MEDS: SODIUM CHLOR 0.9% 1000 ML INJ 1,000 ML IV SCH (07:59)
[2016-09-27] MEDS: DOCUSATE SODIUM 50 MG/SENNA 8.6 MG TAB PO SCH (07:59)
[2016-09-27] MEDS: SODIUM CHLORIDE 0.9% FLUSH 5 ML FLUSH IVF SCH ×2 (07:59→20:43)
[2016-09-27] MEDS: CHLORHEXIDINE 0.12% (ORAL KIT) 15 ML CUP MT SCH ×2 (07:59→20:42)
[2016-09-27] MEDS: VALPROATE INJ 250 MG in SODIUM CHLORIDE 0.9% INJ 100 ML IV SCH ×2 (08:00→20:43)
[2016-09-27] MEDS: POTASSIUM PHOSPHATE INJ 30 MMOL in SODIUM CHLOR 0.9% 250 ML INJ 250 ML IV PRN (09:11)
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
[2016-09-27] MEDS: THIAMINE HCL 100 MG TAB PO SCH (11:06)
[2016-09-27] MEDS: ARTIFICIAL TEARS OPTH SOLN 15 ML BTL EACH EYE SCH ×3 (11:07→22:03)
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
[2016-09-27 16:45] LABS: POTASSIUM 3.6 MEQ/L (3.5-5.1)
[2016-09-27 19:52] LABS: POTASSIUM 3.1 MEQ/L (3.5-5.1)
[2016-09-27] MEDS: MAGNESIUM HYDROXIDE SUSP 30 ML CUP PO SCH (20:43)
[2016-09-27] MEDS: LACTULOSE SYRUP 20 GM/30 ML CUP PO SCH (20:43)
[2016-09-27] MEDS ORDERED: SENNOSIDES 8.6 MG TAB PO SCH (21:00)
[2016-09-27] MEDS: PANTOPRAZOLE SODIUM 40 MG VIAL IV SCH (22:02)
[2016-09-28] VITALS (17 sets, daily range): BP systolic 104–133; BP diastolic 66–87; PULSE 55–73; RESP 15–23; TEMP 97.9–99.2; O2SAT 95–98
[2016-09-28] MEDS: POTASSIUM PHOSPHATE INJ 30 MMOL in SODIUM CHLOR 0.9% 250 ML INJ 250 ML IV PRN (00:36)
[2016-09-28] MEDS: PROPOFOL 1000 MG/100 ML INJ 100 ML IV SCH ×3 (01:32→08:54)
[2016-09-28] MEDS: AMPICILLIN-SULBACTAM INJ 1,500 MG in SODIUM CHLORIDE 0.9% INJ 100 ML IV SCH ×4 (01:32→21:56)
[2016-09-28] MEDS: RESP: ALBUTEROL 2.5 MG/IPRATROPIUM 0.5 MG NEB (SCH) NEB ×4 (03:57→21:18)
[2016-09-28 04:31] LABS: AUTOMATED NEUTROPHIL # 7.6 TH/MM3 (1.8-7.7); BASOPHIL % 0.2 % (0.0-2.0); EOSINOPHIL # 0.2 TH/MM3 (0-0.4); EOSINOPHIL % 1.8 % (0.0-4.0); HEMATOCRIT 33.8 % (39.0-51.0); LYMPH % 13.4 % (9.0-44.0); LYMPHOCYTE # 1.3 TH/MM3 (1.0-4.8); MEAN CELL VOLUME 88.8 FL (80.0-100.0); MEAN CORPUSCULAR HEMOGLOBIN 30.5 PG (27.0-34.0); MEAN CORPUSCULAR HGB CONC 34.4 % (32.0-36.0); MONO % 8.6 % (0.0-8.0); PLATELET COUNT 219 TH/MM3 (150-450); RED CELL DISTRIBUTION WIDTH 14.3 % (11.6-17.2)
[2016-09-28 04:32] LABS: HEMO FLAGS AUTO DIFF
[2016-09-28 05:15] LABS: ALT (GPT) 30 U/L (12-78); ANION GAP 7 MEQ/L (5-15); AST (GOT) 28 U/L (15-37); BICARBONATE 27.9 MEQ/L (21.0-32.0); BLOOD UREA NITROGEN 10 MG/DL (7-18); CHLORIDE 112 MEQ/L (98-107); GLOMERULAR FILTRATION RATE 196 ML/MIN (>89); MAGNESIUM 2.2 MG/DL (1.5-2.5); POTASSIUM 3.9 MEQ/L (3.5-5.1); SODIUM (NA) 147 MEQ/L (136-145)
[2016-09-28 05:18] LABS: ALKALINE PHOSPHATASE 45 U/L (45-117); TOTAL BILIRUBIN ADULT 0.3 MG/DL (0.2-1.0)
[2016-09-28 05:19] LABS: CORRECTED NUCLEATED RBC 1 /100 WBC (0-0); POLYS (SEG NEUTROPHILS) 70 % (16-70); WBC DIFF SAMPLE 100
[2016-09-28 05:21] LABS: PLATELET ESTIMATE SMEAR NORMAL (NORMAL); PLATELET MORPHOLOGY NORMAL (NORMAL); SCAN/DIFF FINAL DIFF MANUAL
[2016-09-28 05:22] LABS: ACANTHOCYTES OCC (NORMAL)
[2016-09-28] MEDS: INSULIN ASPART SUPPLEMENTAL SCALE SQ SCH ×5 (05:47→23:43)
[2016-09-28] MEDS: ARTIFICIAL TEARS OPTH SOLN 15 ML BTL EACH EYE SCH ×3 (05:47→21:57)
--- NOTE | 2016-09-28 06:28 | RADRPT ---
EXAM DATE/TIME: 09/28/2016 04:42 [facility] COMPARISON: CHEST SINGLE AP, September 27, 2016, 4:17. INDICATIONS : Shortness of breath. MEDICAL HISTORY : None. SURGICAL HISTORY : None. ENCOUNTER: Subsequent ACUITY: 4 - 6 days PAIN SCORE: Non-responsive. LOCATION: Bilateral chest FINDINGS: Feeding tube enters stomach. Tracheostomy in satisfactory position. Basal airspace consolidation, lef t greater than right similar to September 27. Small effusions. CONCLUSION: 1. Stable exam compared with September 27. Vignesh Flores MD on September 28, 2016 at 6:26 Board Certified Radiologist. This report was verified electronically.
[2016-09-28] MEDS: CHLORHEXIDINE 0.12% (ORAL KIT) 15 ML CUP MT SCH ×2 (08:00→21:57)
[2016-09-28 08:14] LABS: POTASSIUM 3.9 MEQ/L (3.5-5.1)
[2016-09-28] MEDS: VALPROATE INJ 250 MG in SODIUM CHLORIDE 0.9% INJ 100 ML IV SCH (08:53)
[2016-09-28] MEDS: LACTULOSE SYRUP 20 GM/30 ML CUP PO SCH ×3 (08:54→23:43)
[2016-09-28] MEDS: SODIUM CHLORIDE 0.9% FLUSH 5 ML FLUSH IVF SCH ×2 (08:54→21:57)
[2016-09-28] MEDS: THIAMINE HCL 100 MG TAB PO SCH (08:54)
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
[2016-09-28] MEDS ORDERED: SENNOSIDES SYRUP 8.8 MG/5 ML CUP PO ONE (12:45)
[2016-09-28] MEDS ORDERED: MINERAL OIL LIQUID 30 ML CUP PO ONE (12:45)
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
[2016-09-28] MEDS: ONDANSETRON HCL 4 MG/2 ML VIAL IV PRN (15:41)
--- NOTE | 2016-09-28 19:17 | HHI.PR ---
Subjective Remarks POD 1 s/p ORIF Lefort 3 maxillary fracture/right zmc fracture reconstruction of right orbital floor fracture with mesh closed reduction of nasal bone fractures pt seen and examined., trached, vented, sedated halo in place Objective Vital Signs Date Time Temp Pulse Resp B/P Pulse Ox O2 Delivery O2 Flow Rate FiO2 09/28/16 18:00 63 09/28/16 16:00 98.0 64 20 133/78 96 09/28/16 16:00 30 09/28/16 16:00 64 09/28/16 14:00 73 09/28/16 12:00 97.9 72 23 121/87 95 09/28/16 12:00 30 09/28/16 12:00 72 09/28/16 10:00 64 09/28/16 08:12 30 09/28/16 08:12 97 Ventilator 30 09/28/16 08:12 96 30 09/28/16 08:00 30 09/28/16 08:00 98.1 55 18 132/69 96 09/28/16 08:00 63 09/28/16 06:00 68 09/28/16 04:00 40 09/28/16 04:00 98.9 66 15 104/66 98 09/28/16 04:00 66 09/28/16 03:57 98 30 09/28/16 02:00 62 09/28/16 00:28 97 30 09/28/16 00:00 40 09/28/16 00:00 64 09/28/16 00:00 99.2 64 18 119/76 95 09/27/16 22:00 68 09/27/16 20:17 99 30 09/27/16 20:00 70 09/27/16 20:00 40 09/27/16 20:00 99.8 66 14 106/67 100 I/O 09/27/16 09/27/16 09/27/16 09/28/16 09/28/16 09/28/16 07:00 15:00 23:00 07:00 15:00 23:00 Intake Total 1529 ml 1460 ml 1134 ml 871 ml 920 ml Output Total 600 ml 650 ml 470 ml 550 ml 850 ml Balance 929 ml 810 ml 664 ml 321 ml 70 ml Intake IV Total 1325 ml 1400 ml 1074 ml 811 ml 437 ml Tube Feeding 144 ml 60 ml 60 ml 60 ml 383 ml Tube Irrigant 60 ml Other 100 ml Output Urine Total 600 ml 650 ml 470 ml 550 ml 850 ml # Bowel Movements 0 0 0 0 0 Result Diagram: 09/28/16 0310 09/28/16 0733 Objective Remarks significant decrease in facial edema, PERRLA, EOMI appears intact following commands better at the beginning of exam, shows thumbs up right sided periorbital ecchymosis/edema decreased, chemosis decreasing nasal splint/reduction in position, og tube noted intraorally - tissues pink/well perfused all wound margins well approximated/sutures intact hemostatic all wounds bite appears to line up, but pt not very cooperative to exam at this point Assessment and Plan Assessment and Plan POD 4 s/p ORIF Lefort 1 maxillary fracture/right zmc fracture reconstruction of right orbital floor fracture with mesh closed reduction of nasal bone fractures continue supportive care peridex oral care d/w pt's brother Yousuf the severe nature of the pt's injury, the treatment, prognosis will follow Isael Lindsey DMD Sep 28, 2016 19:16
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
[2016-09-28] MEDS: VALPROATE INJ 500 MG in SODIUM CHLORIDE 0.9% INJ 100 ML IV SCH (21:56)
[2016-09-28] MEDS: MAGNESIUM HYDROXIDE SUSP 30 ML CUP PO SCH (21:57)
[2016-09-28] MEDS: DOCUSATE SODIUM 100 MG/10 ML UDC PO SCH (21:57)
[2016-09-28] MEDS: PANTOPRAZOLE SODIUM 40 MG VIAL IV SCH (21:58)
[2016-09-29] VITALS (20 sets, daily range): BP systolic 118–158; BP diastolic 74–91; PULSE 60–94; RESP 14–26; TEMP 97.9–98.5; O2SAT 93–99
[2016-09-29] MEDS: AMPICILLIN-SULBACTAM INJ 1,500 MG in SODIUM CHLORIDE 0.9% INJ 100 ML IV SCH ×4 (01:13→20:43)
[2016-09-29] MEDS: PROPOFOL 1000 MG/100 ML INJ 100 ML IV SCH (02:09)
[2016-09-29] MEDS: RESP: ALBUTEROL 2.5 MG/IPRATROPIUM 0.5 MG NEB (SCH) NEB ×4 (03:28→20:09)
[2016-09-29] MEDS: ONDANSETRON HCL 4 MG/2 ML VIAL IV PRN (04:08)
[2016-09-29 04:12] LABS: AUTOMATED NEUTROPHIL # 9.5 TH/MM3 (1.8-7.7); BASOPHIL # 0.1 TH/MM3 (0-0.2); BASOPHIL % 0.6 % (0.0-2.0); EOSINOPHIL # 0.2 TH/MM3 (0-0.4); EOSINOPHIL % 1.3 % (0.0-4.0); HEMATOCRIT 32.5 % (39.0-51.0); HEMO FLAGS DIFF FINAL; LYMPH % 9.5 % (9.0-44.0); LYMPHOCYTE # 1.1 TH/MM3 (1.0-4.8); MEAN CELL VOLUME 88.3 FL (80.0-100.0); MEAN CORPUSCULAR HEMOGLOBIN 30.9 PG (27.0-34.0); MONO % 8.5 % (0.0-8.0); NEUT % 80.1 % (16.0-70.0); PLATELET COUNT 209 TH/MM3 (150-450); RED BLOOD COUNT 3.68 MIL/MM3 (4.50-5.90); RED CELL DISTRIBUTION WIDTH 14.4 % (11.6-17.2); WHITE BLOOD COUNT 11.8 TH/MM3 (4.0-11.0)
[2016-09-29 04:39] LABS: BICARBONATE 25.4 MEQ/L (21.0-32.0); CALCIUM-PROTEIN CORRECTED 8.4 MG/DL (8.5-10.1); MAGNESIUM 2.1 MG/DL (1.5-2.5); TOTAL BILIRUBIN ADULT 0.7 MG/DL (0.2-1.0)
--- NOTE | 2016-09-29 05:15 | RADRPT ---
EXAM DATE/TIME: 09/29/2016 04:07 [place] COMPARISON: CHEST SINGLE AP, September 28, 2016, 4:42. INDICATIONS : Shortness of breath. MEDICAL HISTORY : None. SURGICAL HISTORY : None. ENCOUNTER: Subsequent ACUITY: 1 week PAIN SCORE: Non-responsive. LOCATION: Bilateral chest FINDINGS: Tracheostomy tube and feeding tube noted. EKG leads are present. There is patchy left basilar airspac e disease. This is slightly improved. External fixation hardware. Left mid posterior rib fracture. CONCLUSION: Improved aeration left lung base. Fred Chapman MD on September 29, 2016 at 5:12 Board Certified Radiologist. This report was verified electronically.
[2016-09-29] MEDS: LACTULOSE SYRUP 20 GM/30 ML CUP PO SCH ×3 (05:38→14:59)
[2016-09-29] MEDS: INSULIN ASPART SUPPLEMENTAL SCALE SQ SCH (05:39)
[2016-09-29] MEDS: ARTIFICIAL TEARS OPTH SOLN 15 ML BTL EACH EYE SCH ×2 (05:40→13:01)
[2016-09-29] MEDS: fentaNYL DRIP 250 ML IV SCH (06:13)
[2016-09-29 06:18] LABS: BLOOD GAS BASE EXCESS 1.9 mmol/L (-2-2); BLOOD GAS CARBOXYHEMOGLOBIN 1.3 % (0-4); BLOOD GAS HCO3 26 mmol/L (22-26); BLOOD GAS METHEMOGLOBIN 0.7 % (0-2); BLOOD GAS O2 HGB SATURATION 85 % (90-100); BLOOD GAS OXYGEN CONTENT 13.6 Vol % (12.0-20.0); BLOOD GAS PCO2 40 mmHg (38-42); BLOOD GAS PO2 51 mmHg (61-120); BLOOD GAS TOTAL HGB 11.5 G/DL (12.0-16.0); CRITICAL VALUE YES; OXYGEN DEVICE VENTILATOR; TEMP CORR TO 98.6
[2016-09-29 06:19] LABS: DRAW SITE LT RADIAL; FIO2 30 %; NUMBER OF ARTERIAL PUNCTURES 2; STAT NO; ULNAR PULSE PRESENT; VENT SETTINGS CPAP PS10 PEEP5
[2016-09-29] MEDS: SODIUM CHLORIDE 0.9% FLUSH 5 ML FLUSH IVF SCH ×2 (08:05→21:13)
[2016-09-29] MEDS: DOCUSATE SODIUM 100 MG/10 ML UDC PO SCH ×2 (08:05→21:00)
[2016-09-29] MEDS: SENNOSIDES SYRUP 8.8 MG/5 ML CUP PO SCH (08:05)
[2016-09-29] MEDS: THIAMINE HCL 100 MG TAB PO SCH (08:13)
[2016-09-29] MEDS: CHLORHEXIDINE 0.12% (ORAL KIT) 15 ML CUP MT SCH ×2 (08:13→20:44)
[2016-09-29] MEDS: VALPROATE INJ 500 MG in SODIUM CHLORIDE 0.9% INJ 100 ML IV SCH ×2 (08:13→21:13)
[2016-09-29] MEDS ORDERED: FUROSEMIDE 40 MG/4 ML VIAL IV PUSH ONE (11:00)
[2016-09-29] MEDS ORDERED: DEXTROSE 50% IN WATER 50 ML VIAL(D50) IV PUSH PRN (11:00)
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
[2016-09-29] MEDS: INSULIN NovoLIN REGULAR SUPPLEMENTAL SCALE SQ SCH ×2 (11:37→17:06)
[2016-09-29] MEDS: ENOXAPARIN SODIUM 40 MG/0.4 ML SYRINGE SQ SCH (11:45)
[2016-09-29] MEDS: METOCLOPRAMIDE HCL 10 MG/2 ML VIAL IV PUSH SCH ×2 (11:46→20:43)
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
--- NOTE | 2016-09-29 13:44 | HHI.PR ---
Subjective Remarks POD 5 s/p ORIF Lefort 3 maxillary fracture/right zmc fracture reconstruction of right orbital floor fracture with mesh closed reduction of nasal bone fractures pt seen and examined., trached, vented, sedated halo in place sitting up in bed Objective Vital Signs Date Time Temp Pulse Resp B/P Pulse Ox O2 Delivery O2 Flow Rate FiO2 09/29/16 12:00 40 09/29/16 12:00 94 09/29/16 12:00 98.1 63 16 158/78 96 09/29/16 10:00 73 09/29/16 09:31 96 T-piece 8.00 35 09/29/16 09:00 62 09/29/16 08:00 30 09/29/16 08:00 97.9 62 26 118/74 99 09/29/16 08:00 64 09/29/16 07:36 98 40 09/29/16 06:00 87 09/29/16 04:29 95 30 09/29/16 04:00 30 09/29/16 04:00 78 09/29/16 04:00 98.5 78 22 143/91 93 09/29/16 02:00 70 09/29/16 01:44 94 30 09/29/16 00:00 98.2 73 16 127/81 96 09/29/16 00:00 69 09/29/16 00:00 30 09/28/16 22:32 96 30 09/28/16 22:00 73 09/28/16 20:00 69 09/28/16 20:00 98.4 70 17 115/71 97 09/28/16 20:00 30 09/28/16 19:52 97 30 09/28/16 18:00 63 09/28/16 16:00 98.0 64 20 133/78 96 09/28/16 16:00 30 09/28/16 16:00 64 09/28/16 14:00 73 I/O 09/28/16 09/28/16 09/28/16 09/29/16 09/29/16 09/29/16 07:00 15:00 23:00 07:00 15:00 23:00 Intake Total 871 ml 920 ml 665 ml 915 ml Output Total 550 ml 850 ml 1400 ml 1000 ml Balance 321 ml 70 ml -735 ml -85 ml Intake IV Total 811 ml 437 ml 315 ml 555 ml Tube Feeding 60 ml 383 ml 150 ml 300 ml Other 100 ml 200 ml 60 ml Output Urine Total 550 ml 850 ml 1400 ml 1000 ml # Bowel Movements 0 0 0 2 Result Diagram: 09/29/1632409/29/16324 Objective Remarks significant decrease in facial edema, PERRLA communicates by showing thumbs up right sided periorbital ecchymosis/edema decreased, chemosis decreasing nasal splint not in position position, og tube attached - appears to have the nasal splint lifted off the og tube intraorally - tissues pink/well perfused all wound margins well approximated/sutures intact hemostatic all wounds bite appears to line up Assessment and Plan Assessment and Plan POD 5 s/p ORIF Lefort 1 maxillary fracture/right zmc fracture reconstruction of right orbital floor fracture with mesh closed reduction of nasal bone fractures continue supportive care peridex oral care removed old nasal splint, new nasal splint placed continue Unasyn x 2 days Isael Lindsey DMD Sep 29, 2016 13:44
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
[2016-09-29] MEDS: MAGNESIUM HYDROXIDE SUSP 30 ML CUP PO SCH (21:00)
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
[2016-09-29] MEDS ORDERED: LORazepam 2 MG/ML VIAL ONE (21:58)
[2016-09-29] MEDS ORDERED: MIDAZOLAM HCL 5 MG/ML VIAL (1 ML) ONE (23:02)
[2016-09-29] MEDS ORDERED: PROPOFOL 1000 MG/100 ML INJ 100 ML ONE (23:02)
[2016-09-30] VITALS (21 sets, daily range): BP systolic 113–160; BP diastolic 69–92; PULSE 60–110; RESP 14–22; TEMP 98.2–99.2; O2SAT 93–100
[2016-09-30] MEDS: ARTIFICIAL TEARS OPTH SOLN 15 ML BTL EACH EYE SCH ×4 (00:24→22:00)
[2016-09-30] MEDS: PANTOPRAZOLE SODIUM 40 MG VIAL IV SCH ×2 (00:28→23:00)
[2016-09-30] MEDS ORDERED: MIDAZOLAM HCL 2 MG/2 ML VIAL IV PUSH ONE (01:00)
[2016-09-30] MEDS ORDERED: fentaNYL CITRATE 250 MCG/5 ML AMP IV PUSH ONE (01:00)
[2016-09-30] MEDS ORDERED: PROPOFOL 1000 MG/100 ML INJ 100 ML IV SCH (01:00)
--- NOTE | 2016-09-30 01:15 | PD.PROCEDR ---
Procedure Note Procedure Date: 09/30/16 Procedure: Fiberoptic bronchoscopy Indication: Patient with acute onset of hypoxia, some improvement after RN suctioned, concerned for ongoing mucous plug. Details of procedure: Procedure was performed emergently as patient had hypoxia and concern for mucous plug. The patient was preoxygenated with 100% FiO2 via tracheostomy tube and sedated with fentanyl 100 g mcg IV, Versed 5 mg IV, and propofol 50 g per KG per minute. I entered the endotracheal tube with a flexible bronchoscope. The bronchoscope was advanced into all pulmonary subsegments. Minimal clear secretions suctioned. No obvious mucous plug. He tolerated procedure well without apparent complication. Following procedure, patient had improved oxygenation and was weaned back down to 40% and able to tolerate CPAP. Melyssa Gibson MD Sep 30, 2016 01:15 the bronchoscope. All lung segments were visually inspected and were cleared of any significant blood clots or mucus. The patient tolerated the procedure well without any apparent complications. A stat chest x-ray was ordered. Melyssa Gibson MD Sep 30, 2016 01:15
[2016-09-30] MEDS: RESP: ALBUTEROL 2.5 MG/IPRATROPIUM 0.5 MG NEB (SCH) NEB ×4 (03:03→20:09)
[2016-09-30] MEDS: AMPICILLIN-SULBACTAM INJ 1,500 MG in SODIUM CHLORIDE 0.9% INJ 100 ML IV SCH ×4 (03:22→20:11)
[2016-09-30] MEDS: METOCLOPRAMIDE HCL 10 MG/2 ML VIAL IV PUSH SCH ×3 (04:00→20:00)
--- NOTE | 2016-09-30 05:20 | RADRPT ---
EXAM DATE/TIME: 09/30/2016 04:42 [facility] COMPARISON: CT BRAIN W/O CONTRAST, September 26, 2016, 3:37. INDICATIONS : Follow up hemorrhage. RADIATION DOSE: 56.35 CTDIvol (mGy) MEDICAL HISTORY : Brain injury SURGICAL HISTORY : Tracheostomy ENCOUNTER: Subsequent ACUITY: 3 days PAIN SCALE: Non-responsive LOCATION: cranial TECHNIQUE: Multiple contiguous axial images were obtained of the head. Using automated exposure control and adj ustment of the mA and/or kV according to patient size, radiation dose was kept as low as reasonably a chievable to obtain optimal diagnostic quality images. FINDINGS: Comminuted maxillary sinus wall fractures are seen with plate and screw fixation of the maxilla ident ified, opacification of the bilateral maxillary sinuses, sphenoid sinus air-fluid levels and mucosal thickening and ethmoid air cell opacification as well as comminuted nasal bone fractures. A right gaffney lacey papyracea fracture, and right bilateral pterygoid and zygomatic arch fractures are seen. There is a fracture of the right sphenoid bone and right frontal calvarium extending into the right temporal bone. There is a right frontal extra-axial hemorrhage again seen and obscured by streak artifact from the halo fixation apparatus. A maximal transverse width of 8.2 mm is noted, slightly decreased from previous. This extends anteriorly into the right middle cranial fossa anterior temporal region. There is 4 mm of right to left shift. CONCLUSION: Extensive fracturing as described above. The right frontal temporal subdural hemorrhage is slightly d ecreased in prominence today. Midline shift is noted. Fred Chapman MD on September 30, 2016 at 5:15 Board Certified Radiologist. This report was verified electronically.
[2016-09-30] MEDS: LACTULOSE SYRUP 20 GM/30 ML CUP PO SCH ×4 (05:27→17:39)
--- NOTE | 2016-09-30 05:48 | RADRPT ---
EXAM DATE/TIME: 09/30/2016 03:58 [facility] COMPARISON: CHEST SINGLE AP, September 29, 2016, 4:07. INDICATIONS : Shortness of breath. MEDICAL HISTORY : None. SURGICAL HISTORY : None. ENCOUNTER: Subsequent ACUITY: 1 week PAIN SCORE: Non-responsive. LOCATION: Bilateral chest FINDINGS: Tracheostomy tube. Cardiac. Lungs are clear. CONCLUSION: No significant change has occurred. Fred Chapman MD on September 30, 2016 at 5:46 Board Certified Radiologist. This report was verified electronically.
[2016-09-30] MEDS: INSULIN NovoLIN REGULAR SUPPLEMENTAL SCALE SQ SCH ×4 (06:00→17:39)
[2016-09-30] MEDS: CHLORHEXIDINE 0.12% (ORAL KIT) 15 ML CUP MT SCH ×2 (08:00→20:00)
[2016-09-30 08:06] LABS: AUTOMATED NEUTROPHIL # 7.7 TH/MM3 (1.8-7.7); BASOPHIL % 0.2 % (0.0-2.0); EOSINOPHIL # 0.3 TH/MM3 (0-0.4); EOSINOPHIL % 2.8 % (0.0-4.0); HEMATOCRIT 33.5 % (39.0-51.0); HEMO FLAGS DIFF FINAL; LYMPH % 14.9 % (9.0-44.0); LYMPHOCYTE # 1.6 TH/MM3 (1.0-4.8); MEAN CELL VOLUME 87.1 FL (80.0-100.0); MEAN CORPUSCULAR HGB CONC 34.4 % (32.0-36.0); MONO % 12.3 % (0.0-8.0); NEUT % 69.8 % (16.0-70.0); PLATELET COUNT 228 TH/MM3 (150-450); RED BLOOD COUNT 3.85 MIL/MM3 (4.50-5.90); RED CELL DISTRIBUTION WIDTH 13.9 % (11.6-17.2); WHITE BLOOD COUNT 11.1 TH/MM3 (4.0-11.0)
[2016-09-30] MEDS: THIAMINE HCL 100 MG TAB PO SCH (08:09)
[2016-09-30] MEDS: SENNOSIDES SYRUP 8.8 MG/5 ML CUP PO SCH (08:09)
[2016-09-30] MEDS: DOCUSATE SODIUM 100 MG/10 ML UDC PO SCH ×2 (08:09→20:11)
[2016-09-30] MEDS: SODIUM CHLORIDE 0.9% FLUSH 5 ML FLUSH IVF SCH ×2 (08:09→20:11)
[2016-09-30 08:32] LABS: ALT (GPT) 66 U/L (12-78); ANION GAP 7 MEQ/L (5-15); AST (GOT) 51 U/L (15-37); BICARBONATE 29.5 MEQ/L (21.0-32.0); CHLORIDE 106 MEQ/L (98-107); GLOMERULAR FILTRATION RATE 182 ML/MIN (>89); MAGNESIUM 2.3 MG/DL (1.5-2.5); SODIUM (NA) 142 MEQ/L (136-145)
[2016-09-30 08:34] LABS: ALKALINE PHOSPHATASE 61 U/L (45-117); BLOOD UREA NITROGEN 10 MG/DL (7-18); TOTAL BILIRUBIN ADULT 0.5 MG/DL (0.2-1.0)
[2016-09-30] MEDS: VALPROATE INJ 500 MG in SODIUM CHLORIDE 0.9% INJ 100 ML IV SCH ×2 (09:00→21:00)
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
[2016-09-30] MEDS ORDERED: FUROSEMIDE 40 MG/4 ML VIAL IV PUSH ONE (12:00)
[2016-09-30] MEDS: QUEtiapine FUMARATE 25 MG TAB PO SCH ×2 (12:16→20:11)
[2016-09-30] MEDS: ENOXAPARIN SODIUM 40 MG/0.4 ML SYRINGE SQ SCH (12:16)
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
[2016-09-30] MEDS ORDERED: HALOPERIDOL LACTATE 5 MG/ML AMP IV PRN (14:30)
[2016-09-30] MEDS: ONDANSETRON HCL 4 MG/2 ML VIAL IV PRN (15:43)
[2016-09-30] MEDS: MAGNESIUM HYDROXIDE SUSP 30 ML CUP PO SCH (20:11)
--- NOTE | 2016-09-30 21:20 | HHI.NSPN ---
History Chief Complaint: intubated Interval History 51-year-old male, MCA. Positive LOC. Small subdural hematoma on initial CT. Positive multiple cervical spine fractures including comminuted C2 body fracture 09/23/16: Halo placement 09/25/16: Tracheostomy in place. Remains alert and following commands 09/26/16: Tracheostomy remains. Continues to follow simple commands all extremities 09/30/16: On trach mask. More alert today. Following commands well. Spontaneous eye opening Exam Results Vital Signs Date Time Temp Pulse Resp B/P Pulse Ox O2 Delivery O2 Flow Rate FiO2 09/30/16 20:09 99 40 09/30/16 18:00 75 09/30/16 16:00 98.8 22 141/92 09/30/16 08:45 T-piece 09/29/16 22:17 15.00 Intake and Output 09/29/16 09/29/16 09/30/16 08:00 16:00 00:00 Intake Total 915 ml 562 ml 250 ml Output Total 1000 ml 3200 ml 1300 ml Balance -85 ml -2638 ml -1050 ml Physical Examination Tracheostomy in place Trach mask Halo in good position respirations clear Abdomen soft More awake and alert today. Spontaneous eye opening Signals S Endo and responds to questions Moves all extremities moderate in response to commands Teague's absent bilateral No ankle clonus Pupils 3 mm nonreactive Lab, Micro, Other Results 09/30/2016 CT scan head images reviewed by the undersigned. Mild improvement in right frontotemporal epidural versus subdural hematoma with minimal midline shift, improved compared to prior study. Chest X-Ray 09/30/16 0600 Signed Impressions: Service Date/Time: Friday, September 30, 2016 03:58 - CONCLUSION: No significant change has occurred. Fred Chapman MD Head CT 09/30/16 0000 Signed Impressions: Service Date/Time: Friday, September 30, 2016 04:42 - CONCLUSION: Extensive fracturing as described above. The right frontal temporal subdural hemorrhage is slightly decreased in prominence today. Midline shift is noted. Fred Chapman MD Laboratory Tests Test 09/30/16 07:26 White Blood Count 11.1 TH/MM3 Red Blood Count 3.85 MIL/MM3 Hemoglobin 11.5 GM/DL Hematocrit 33.5 % Mean Corpuscular Volume 87.1 FL Mean Corpuscular Hemoglobin 30.0 PG Mean Corpuscular Hemoglobin 34.4 % Concent Red Cell Distribution Width 13.9 % Platelet Count 228 TH/MM3 Mean Platelet Volume 8.1 FL Neutrophils (%) (Auto) 69.8 % Lymphocytes (%) (Auto) 14.9 % Monocytes (%) (Auto) 12.3 % Eosinophils (%) (Auto) 2.8 % Basophils (%) (Auto) 0.2 % Neutrophils # (Auto) 7.7 TH/MM3 Lymphocytes # (Auto) 1.6 TH/MM3 Monocytes # (Auto) 1.4 TH/MM3 Eosinophils # (Auto) 0.3 TH/MM3 Basophils # (Auto) 0.0 TH/MM3 CBC Comment DIFF FINAL Differential Comment Sodium Level 142 MEQ/L Potassium Level 4.0 MEQ/L Chloride Level 106 MEQ/L Carbon Dioxide Level 29.5 MEQ/L Anion Gap 7 MEQ/L Blood Urea Nitrogen 10 MG/DL Creatinine 0.48 MG/DL Estimat Glomerular Filtration 182 ML/MIN Rate Random Glucose 82 MG/DL Calcium Level 8.2 MG/DL Magnesium Level 2.3 MG/DL Total Bilirubin 0.5 MG/DL Aspartate Amino Transf 51 U/L (AST/SGOT) Alanine Aminotransferase 66 U/L (ALT/SGPT) Alkaline Phosphatase 61 U/L Total Protein 5.9 GM/DL Albumin 2.4 GM/DL Medical Decision Making Impression and Plan Impression: 1. Traumatic brain injury-stable neurologic status. Patient has developed a relatively focal epidural hematoma on follow-up CT scan of 09/24/16, at the right frontotemporal region adjacent to skull fracture, but without significant mass effect and stable on follow-up CT of 09/26/16. 2. Multiple cervical spine fractures including comminuted C2 fracture. Status post halo placement Plan: Stable for transfer to floor when cleared by appointment scheduler Continue physical therapy May mobilize out of bed with halo brace Dwain Garcia MD Sep 30, 2016 21:20
[2016-10-01] VITALS (20 sets, daily range): BP systolic 136–157; BP diastolic 75–80; PULSE 62–110; RESP 10–22; TEMP 98.2–99.4; O2SAT 90–100
[2016-10-01] MEDS: HYDROmorphone HCL PF 1 MG/ML VIAL IV PUSH PRN ×2 (02:27→20:22)
[2016-10-01] MEDS: AMPICILLIN-SULBACTAM INJ 1,500 MG in SODIUM CHLORIDE 0.9% INJ 100 ML IV SCH ×2 (02:28→09:17)
[2016-10-01] MEDS: RESP: ALBUTEROL 2.5 MG/IPRATROPIUM 0.5 MG NEB (SCH) NEB ×4 (03:02→20:06)
[2016-10-01] MEDS: METOCLOPRAMIDE HCL 10 MG/2 ML VIAL IV PUSH SCH ×3 (04:00→20:21)
[2016-10-01 04:15] LABS: AUTOMATED NEUTROPHIL # 10.3 TH/MM3 (1.8-7.7); BASOPHIL # 0.1 TH/MM3 (0-0.2); BASOPHIL % 0.5 % (0.0-2.0); EOSINOPHIL # 0.1 TH/MM3 (0-0.4); EOSINOPHIL % 0.9 % (0.0-4.0); HEMATOCRIT 35.5 % (39.0-51.0); HEMO FLAGS DIFF FINAL; LYMPH % 11.6 % (9.0-44.0); LYMPHOCYTE # 1.6 TH/MM3 (1.0-4.8); MEAN CELL VOLUME 87.4 FL (80.0-100.0); MEAN CORPUSCULAR HEMOGLOBIN 29.1 PG (27.0-34.0); MEAN CORPUSCULAR HGB CONC 33.3 % (32.0-36.0); PLATELET COUNT 263 TH/MM3 (150-450); RED BLOOD COUNT 4.06 MIL/MM3 (4.50-5.90); RED CELL DISTRIBUTION WIDTH 13.8 % (11.6-17.2); WHITE BLOOD COUNT 13.7 TH/MM3 (4.0-11.0)
[2016-10-01] MEDS: ARTIFICIAL TEARS OPTH SOLN 15 ML BTL EACH EYE SCH ×3 (04:20→21:53)
[2016-10-01] MEDS: LACTULOSE SYRUP 20 GM/30 ML CUP PO SCH ×4 (04:20→17:59)
[2016-10-01 04:43] LABS: ALKALINE PHOSPHATASE 69 U/L (45-117); ALT (GPT) 60 U/L (12-78); ANION GAP 8 MEQ/L (5-15); AST (GOT) 42 U/L (15-37); BICARBONATE 27.8 MEQ/L (21.0-32.0); BLOOD UREA NITROGEN 13 MG/DL (7-18); CHLORIDE 105 MEQ/L (98-107); GLOMERULAR FILTRATION RATE 138 ML/MIN (>89); MAGNESIUM 2.3 MG/DL (1.5-2.5); POTASSIUM 4.7 MEQ/L (3.5-5.1); SODIUM (NA) 141 MEQ/L (136-145); TOTAL BILIRUBIN ADULT 0.7 MG/DL (0.2-1.0)
--- NOTE | 2016-10-01 04:47 | RADRPT ---
EXAM DATE/TIME: 10/01/2016 03:35 [facility] COMPARISON: CHEST SINGLE AP, September 30, 2016, 3:58. INDICATIONS : Shortness of breath. MEDICAL HISTORY : None. SURGICAL HISTORY : None. ENCOUNTER: Subsequent ACUITY: 1 week PAIN SCORE: Non-responsive. LOCATION: Bilateral chest FINDINGS: There is basilar airspace disease and atelectasis. Tracheostomy tube and external fixation hardware s een. Heart size normal. CONCLUSION: No significant change has occurred. Fred Chapman MD on October 01, 2016 at 4:45 Board Certified Radiologist. This report was verified electronically.
[2016-10-01] MEDS: INSULIN NovoLIN REGULAR SUPPLEMENTAL SCALE SQ SCH ×4 (06:00→18:00)
[2016-10-01] MEDS: CHLORHEXIDINE 0.12% (ORAL KIT) 15 ML CUP MT SCH ×2 (08:00→20:00)
[2016-10-01] MEDS: SENNOSIDES SYRUP 8.8 MG/5 ML CUP PO SCH (08:10)
[2016-10-01] MEDS: QUEtiapine FUMARATE 25 MG TAB PO SCH (08:10)
[2016-10-01] MEDS: DOCUSATE SODIUM 100 MG/10 ML UDC PO SCH ×2 (08:10→20:21)
[2016-10-01] MEDS: THIAMINE HCL 100 MG TAB PO SCH (08:11)
[2016-10-01] MEDS ORDERED: FUROSEMIDE 40 MG/4 ML VIAL IV PUSH ONE (08:30)
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
[2016-10-01] MEDS: SODIUM CHLORIDE 0.9% FLUSH 5 ML FLUSH IVF SCH ×2 (09:00→20:22)
[2016-10-01] MEDS: VALPROATE INJ 500 MG in SODIUM CHLORIDE 0.9% INJ 100 ML IV SCH ×2 (09:16→20:22)
[2016-10-01] MEDS: OLANZapine ODT 10 MG TAB PO SCH ×2 (09:34→17:04)
[2016-10-01] MEDS: ENOXAPARIN SODIUM 40 MG/0.4 ML SYRINGE SQ SCH (11:46)
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
[2016-10-01 13:17] LABS: BLOOD, URINE NEG (NEG); GLUCOSE,URINE NEG (NEG); KETONE, URINE 10 mg/dL (NEG); NITRITE,URINE NEG (NEG); URINE COLOR LIGHT-YELLOW (YELLW/STRAW)
[2016-10-01 13:22] LABS: COMMENT (UR) CATH-CULT NOT IND; CULTURE IF INDICATED CATH CULTURE NOT IND
--- NOTE | 2016-10-01 19:45 | HHI.NSPN ---
History Chief Complaint: intubated Interval History 51-year-old male, MCA. Positive LOC. Small subdural hematoma on initial CT. Positive multiple cervical spine fractures including comminuted C2 body fracture 09/23/16: Halo placement 09/25/16: Tracheostomy in place. Remains alert and following commands 09/26/16: Tracheostomy remains. Continues to follow simple commands all extremities 09/30/16: On trach mask. More alert today. Following commands well. Spontaneous eye opening 10/01/16: Up partially on tilt table with therapy. Continues to be more alert. Exam Results Vital Signs Date Time Temp Pulse Resp B/P Pulse Ox O2 Delivery O2 Flow Rate FiO2 10/01/16 18:00 83 10/01/16 16:00 40 10/01/16 16:00 99.4 18 148/76 95 10/01/16 12:47 T-piece 6.00 Intake and Output 09/30/16 09/30/16 10/01/16 08:00 16:00 00:00 Intake Total 250 ml 338 ml 294 ml Output Total 1300 ml 2600 ml 1100 ml Balance -1050 ml -2262 ml -806 ml Physical Examination Tracheostomy in place Halo in good position Moderate right periorbital edema and ecchymosis-improving Awake and alert Using sign language to communicate Extraocular movements intact Moves all extremities moderate in response to commands Teague's absent bilateral No ankle clonus Pupils 3 mm nonreactive Lab, Micro, Other Results Laboratory Tests Test 10/01/16 10/01/16 03:40 11:53 White Blood Count 13.7 TH/MM3 Red Blood Count 4.06 MIL/MM3 Hemoglobin 11.8 GM/DL Hematocrit 35.5 % Mean Corpuscular Volume 87.4 FL Mean Corpuscular Hemoglobin 29.1 PG Mean Corpuscular Hemoglobin 33.3 % Concent Red Cell Distribution Width 13.8 % Platelet Count 263 TH/MM3 Mean Platelet Volume 7.9 FL Neutrophils (%) (Auto) 75.0 % Lymphocytes (%) (Auto) 11.6 % Monocytes (%) (Auto) 12.0 % Eosinophils (%) (Auto) 0.9 % Basophils (%) (Auto) 0.5 % Neutrophils # (Auto) 10.3 TH/MM3 Lymphocytes # (Auto) 1.6 TH/MM3 Monocytes # (Auto) 1.6 TH/MM3 Eosinophils # (Auto) 0.1 TH/MM3 Basophils # (Auto) 0.1 TH/MM3 CBC Comment DIFF FINAL Differential Comment Sodium Level 141 MEQ/L Potassium Level 4.7 MEQ/L Chloride Level 105 MEQ/L Carbon Dioxide Level 27.8 MEQ/L Anion Gap 8 MEQ/L Blood Urea Nitrogen 13 MG/DL Creatinine 0.61 MG/DL Estimat Glomerular Filtration 138 ML/MIN Rate Random Glucose 87 MG/DL Calcium Level 9.0 MG/DL Phosphorus Level 2.7 MG/DL Magnesium Level 2.3 MG/DL Total Bilirubin 0.7 MG/DL Aspartate Amino Transf 42 U/L (AST/SGOT) Alanine Aminotransferase 60 U/L (ALT/SGPT) Alkaline Phosphatase 69 U/L Total Protein 6.6 GM/DL Albumin 2.6 GM/DL Urine Color LIGHT-YELLOW Urine Turbidity CLEAR Urine pH 7.0 Urine Specific [place] 1.008 Urine Protein NEG mg/dL Urine Glucose (UA) NEG mg/dL Urine Ketones 10 mg/dL Urine Occult Blood NEG Urine Nitrite NEG Urine Bilirubin NEG Urine Urobilinogen LESS THAN 2.0 MG/DL Urine Leukocyte Esterase NEG Urine RBC 8 /hpf Microscopic Urinalysis Comment CATH-CULT NOT IND Medical Decision Making Impression and Plan Impression: 1. Traumatic brain injury-stable neurologic status. Patient has developed a relatively focal epidural hematoma on follow-up CT scan of 09/24/16, at the right frontotemporal region adjacent to skull fracture, but without significant mass effect and stable on follow-up CT of 09/30/16 2. Multiple cervical spine fractures including comminuted C2 fracture. Status post halo placement Plan: Okay to begin tilt table with therapy. Continue physical therapy May mobilize out of bed with halo brace Dawin Garcia MD Oct 01, 2016 19:45
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
[2016-10-01] MEDS: MAGNESIUM HYDROXIDE SUSP 30 ML CUP PO SCH (21:00)
[2016-10-01] MEDS: PANTOPRAZOLE SODIUM 40 MG VIAL IV SCH (22:09)
[2016-10-02] VITALS (14 sets, daily range): BP systolic 122–149; BP diastolic 67–93; PULSE 58–87; RESP 15–25; TEMP 98.2–99.6; O2SAT 93–97
[2016-10-02] MEDS: OLANZapine ODT 10 MG TAB PO SCH ×3 (02:22→16:43)
[2016-10-02] MEDS: ARTIFICIAL TEARS OPTH SOLN 15 ML BTL EACH EYE SCH ×3 (03:02→21:01)
[2016-10-02] MEDS: METOCLOPRAMIDE HCL 10 MG/2 ML VIAL IV PUSH SCH ×3 (03:02→21:00)
[2016-10-02] MEDS: LACTULOSE SYRUP 20 GM/30 ML CUP PO SCH ×5 (03:03→16:44)
[2016-10-02] MEDS: RESP: ALBUTEROL 2.5 MG/IPRATROPIUM 0.5 MG NEB (SCH) NEB ×4 (03:34→21:32)
[2016-10-02 04:34] LABS: AUTOMATED NEUTROPHIL # 7.8 TH/MM3 (1.8-7.7); BASOPHIL % 0.2 % (0.0-2.0); EOSINOPHIL # 0.2 TH/MM3 (0-0.4); EOSINOPHIL % 2.2 % (0.0-4.0); HEMATOCRIT 34.3 % (39.0-51.0); HEMO FLAGS DIFF FINAL; LYMPH % 12.7 % (9.0-44.0); LYMPHOCYTE # 1.4 TH/MM3 (1.0-4.8); MEAN CORPUSCULAR HEMOGLOBIN 30.3 PG (27.0-34.0); MEAN CORPUSCULAR HGB CONC 35.2 % (32.0-36.0); MONO % 15.5 % (0.0-8.0); NEUT % 69.4 % (16.0-70.0); PLATELET COUNT 295 TH/MM3 (150-450); RED BLOOD COUNT 3.98 MIL/MM3 (4.50-5.90); RED CELL DISTRIBUTION WIDTH 13.5 % (11.6-17.2); WHITE BLOOD COUNT 11.2 TH/MM3 (4.0-11.0)
[2016-10-02 04:52] LABS: ALKALINE PHOSPHATASE 68 U/L (45-117); ALT (GPT) 53 U/L (12-78); ANION GAP 9 MEQ/L (5-15); AST (GOT) 40 U/L (15-37); BICARBONATE 29.1 MEQ/L (21.0-32.0); BLOOD UREA NITROGEN 12 MG/DL (7-18); CHLORIDE 103 MEQ/L (98-107); GLOMERULAR FILTRATION RATE 150 ML/MIN (>89); MAGNESIUM 2.3 MG/DL (1.5-2.5); POTASSIUM 3.7 MEQ/L (3.5-5.1); SODIUM (NA) 141 MEQ/L (136-145); TOTAL BILIRUBIN ADULT 0.7 MG/DL (0.2-1.0)
[2016-10-02] MEDS: INSULIN NovoLIN REGULAR SUPPLEMENTAL SCALE SQ SCH ×4 (05:52→17:41)
[2016-10-02] MEDS: CHLORHEXIDINE 0.12% (ORAL KIT) 15 ML CUP MT SCH ×2 (08:28→20:00)
[2016-10-02] MEDS: VALPROATE INJ 500 MG in SODIUM CHLORIDE 0.9% INJ 100 ML IV SCH (08:28)
[2016-10-02] MEDS: SENNOSIDES SYRUP 8.8 MG/5 ML CUP PO SCH (08:29)
[2016-10-02] MEDS: THIAMINE HCL 100 MG TAB PO SCH (08:29)
[2016-10-02] MEDS: DOCUSATE SODIUM 100 MG/10 ML UDC PO SCH (08:29)
[2016-10-02] MEDS: SODIUM CHLORIDE 0.9% FLUSH 5 ML FLUSH IVF SCH ×2 (08:29→21:00)
[2016-10-02] MEDS: ENOXAPARIN SODIUM 40 MG/0.4 ML SYRINGE SQ SCH (11:05)
[2016-10-02] MEDS: DOCUSATE SODIUM 50 MG/SENNA 8.6 MG TAB PO SCH ×2 (11:05→21:01)
[2016-10-02] MEDS: FAMOTIDINE 20 MG TAB PO SCH ×2 (11:05→21:01)
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
--- NOTE | 2016-10-02 13:46 | HHI.PR ---
Subjective Remarks POD 8 s/p ORIF [place]ef[place] 1 maxillary fracture/right zmc fracture reconstruction of right orbital floor fracture with mesh closed reduction of nasal bone fractures pt seen and examined., trached, T piece halo in place laying in bed Objective Vital Signs Date Time Temp Pulse Resp B/P Pulse Ox O2 Delivery O2 Flow Rate FiO2 10/02/16 12:00 98.2 71 16 122/81 97 10/02/16 12:00 87 10/02/16 11:33 94 T-piece 6.00 35 10/02/16 10:00 77 10/02/16 08:30 T-piece 6.00 35 10/02/16 08:00 58 10/02/16 08:00 98.7 58 16 133/81 96 10/02/16 06:00 70 10/02/16 04:00 73 10/02/16 04:00 99.5 61 20 144/67 95 10/02/16 04:00 95 T-piece 5.00 35 10/02/16 02:00 59 10/02/16 00:00 99.6 73 15 143/83 96 10/02/16 00:00 73 10/01/16 22:00 72 10/01/16 20:52 17 10/01/16 20:04 97 T-piece 5.00 40 10/01/16 20:00 86 10/01/16 20:00 99.4 62 18 148/76 95 10/01/16 18:00 83 10/01/16 16:00 40 10/01/16 16:00 110 10/01/16 16:00 99.4 62 18 148/76 95 10/01/16 14:00 94 I/O 10/01/16 10/01/16 10/01/16 10/02/16 10/02/16 10/02/16 07:00 15:00 23:00 07:00 15:00 23:00 Intake Total 197 ml 120 ml 167 ml 61 ml Output Total 900 ml 2300 ml 900 ml 503 ml Balance -703 ml -2180 ml -733 ml -442 ml Intake IV Total 197 ml 120 ml 167 ml 61 ml Output Urine Total 900 ml 2300 ml 900 ml 500 ml Stool Total 3 ml # Bowel Movements 0 0 0 Result Diagram: 10/02/16 0350 10/02/16 0350 Objective Remarks significant decrease in facial edema, PERRBERT communicates by showing thumbs up right sided periorbital ecchymosis/edema decreased, chemosis decreasing nasal splint at end of bed shelf, nasal bone appear stable no false point of motion maxilla, bite in occlusion intraorally - tissues pink/well perfused all wound margins well approximated/sutures intact hemostatic all wounds no signs of infection bleeding pus edema Assessment and Plan Assessment and Plan POD 8 s/p ORIF L[place] 1 maxillary fracture/right zmc fracture reconstruction of right orbital floor fracture with mesh closed reduction of nasal bone fractures continue supportive care peridex oral care on thickened honey diet/[facility] soft diet Isael Lindsey DMD Oct 02, 2016 13:46
[2016-10-02] MEDS: VALPROIC ACID 250 MG CAP PO SCH ×2 (14:03→16:44)
[2016-10-02] MEDS: MAGNESIUM HYDROXIDE SUSP 30 ML CUP PO SCH (21:00)
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
--- NOTE | 2016-10-02 22:29 | RADRPT ---
EXAM DATE/TIME: 10/02/2016 21:50 [facility] COMPARISON: No previous studies available for comparison. INDICATIONS : Follow up C2 fracture. MEDICAL HISTORY : None. SURGICAL HISTORY : None. ENCOUNTER: Initial ACUITY: 1 week PAIN SCORE: Non-responsive. LOCATION: C2. FINDINGS: A single lateral view of the cervical spine was performed. There is a fracture through the posterior aspect of C2 and superior aspect of C3. No significant change in alignment from prior CT. Moderate d egenerative changes in the lower cervical spine. CONCLUSION: 1. C2 and C3 fractures similar to recent CT. Mild pre-vertebral soft tissue swelling. Vignesh Flores MD on October 02, 2016 at 22:26 Board Certified Radiologist. This report was verified electronically.
--- NOTE | 2016-10-02 22:31 | RADRPT ---
EXAM DATE/TIME: 10/02/2016 21:58 [facility] COMPARISON: No previous studies available for comparison. INDICATIONS : Follow up T6 fracture. MEDICAL HISTORY : None. SURGICAL HISTORY : None. ENCOUNTER: Initial ACUITY: 1 week PAIN SCORE: Non-responsive. LOCATION: T6. FINDINGS: Single lateral view reveals a moderate compression fracture previously described at T6. The thoracic spine is not well identified below the level of T9 or above the level of T3. CONCLUSION: 1. Moderate T6 compression fracture. No significant subluxation. Vignesh Flores MD on October 02, 2016 at 22:28 Board Certified Radiologist. This report was verified electronically.
[2016-10-03] VITALS (14 sets, daily range): BP systolic 127–152; BP diastolic 63–81; PULSE 65–105; RESP 17–30; TEMP 98–99; O2SAT 93–96
[2016-10-03] MEDS: LACTULOSE SYRUP 20 GM/30 ML CUP PO SCH ×5 (00:02→23:18)
[2016-10-03] MEDS: OLANZapine ODT 10 MG TAB PO SCH ×3 (00:19→17:01)
[2016-10-03 03:45] LABS: AUTOMATED NEUTROPHIL # 7.8 TH/MM3 (1.8-7.7); BASOPHIL % 0.4 % (0.0-2.0); EOSINOPHIL # 0.2 TH/MM3 (0-0.4); EOSINOPHIL % 1.8 % (0.0-4.0); HEMATOCRIT 35.7 % (39.0-51.0); HEMO FLAGS DIFF FINAL; LYMPH % 14.3 % (9.0-44.0); LYMPHOCYTE # 1.6 TH/MM3 (1.0-4.8); MEAN CELL VOLUME 86.2 FL (80.0-100.0); MEAN CORPUSCULAR HGB CONC 33.6 % (32.0-36.0); MONO % 15.8 % (0.0-8.0); NEUT % 67.7 % (16.0-70.0); PLATELET COUNT 315 TH/MM3 (150-450); RED BLOOD COUNT 4.14 MIL/MM3 (4.50-5.90); RED CELL DISTRIBUTION WIDTH 13.6 % (11.6-17.2); WHITE BLOOD COUNT 11.5 TH/MM3 (4.0-11.0)
[2016-10-03 04:05] LABS: ALT (GPT) 61 U/L (12-78); ANION GAP 8 MEQ/L (5-15); AST (GOT) 42 U/L (15-37); BICARBONATE 28.2 MEQ/L (21.0-32.0); BLOOD UREA NITROGEN 12 MG/DL (7-18); CHLORIDE 103 MEQ/L (98-107); GLOMERULAR FILTRATION RATE 156 ML/MIN (>89); POTASSIUM 3.8 MEQ/L (3.5-5.1); SODIUM (NA) 139 MEQ/L (136-145)
[2016-10-03 04:07] LABS: ALKALINE PHOSPHATASE 78 U/L (45-117); TOTAL BILIRUBIN ADULT 0.6 MG/DL (0.2-1.0)
[2016-10-03] MEDS: INSULIN NovoLIN REGULAR SUPPLEMENTAL SCALE SQ SCH ×4 (04:35→17:01)
[2016-10-03] MEDS: METOCLOPRAMIDE HCL 10 MG/2 ML VIAL IV PUSH SCH (04:35)
[2016-10-03] MEDS: ARTIFICIAL TEARS OPTH SOLN 15 ML BTL EACH EYE SCH ×3 (04:35→22:00)
[2016-10-03] MEDS: RESP: ALBUTEROL 2.5 MG/IPRATROPIUM 0.5 MG NEB (SCH) NEB ×4 (04:47→19:36)
[2016-10-03] MEDS: CHLORHEXIDINE 0.12% (ORAL KIT) 15 ML CUP MT SCH ×2 (08:41→20:00)
[2016-10-03] MEDS: SODIUM CHLORIDE 0.9% FLUSH 5 ML FLUSH IVF SCH ×2 (08:41→20:26)
[2016-10-03] MEDS: VALPROIC ACID 250 MG CAP PO SCH ×3 (08:41→17:01)
[2016-10-03] MEDS: DOCUSATE SODIUM 50 MG/SENNA 8.6 MG TAB PO SCH ×2 (08:42→20:26)
[2016-10-03] MEDS: FAMOTIDINE 20 MG TAB PO SCH ×2 (08:42→20:25)
[2016-10-03] MEDS: THIAMINE HCL 100 MG TAB PO SCH (08:42)
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
[2016-10-03] MEDS: ENOXAPARIN SODIUM 40 MG/0.4 ML SYRINGE SQ SCH (12:11)
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
[2016-10-03] MEDS: MAGNESIUM HYDROXIDE SUSP 30 ML CUP PO SCH (20:26)
[2016-10-04] VITALS (11 sets, daily range): BP systolic 101–145; BP diastolic 69–85; PULSE 60–101; RESP 10–22; TEMP 98.2–99.9; O2SAT 93–100
[2016-10-04] MEDS: OLANZapine ODT 10 MG TAB PO SCH ×4 (00:45→23:40)
[2016-10-04] MEDS: RESP: ALBUTEROL 2.5 MG/IPRATROPIUM 0.5 MG NEB (SCH) NEB ×2 (03:52→07:27)
[2016-10-04] MEDS: ARTIFICIAL TEARS OPTH SOLN 15 ML BTL EACH EYE SCH ×3 (05:49→20:07)
[2016-10-04] MEDS: LACTULOSE SYRUP 20 GM/30 ML CUP PO SCH ×4 (05:49→23:40)
[2016-10-04] MEDS: INSULIN NovoLIN REGULAR SUPPLEMENTAL SCALE SQ SCH ×2 (05:49)
[2016-10-04] MEDS: CHLORHEXIDINE 0.12% (ORAL KIT) 15 ML CUP MT SCH ×2 (08:00→20:07)
[2016-10-04] MEDS: SODIUM CHLORIDE 0.9% FLUSH 5 ML FLUSH IVF SCH ×2 (09:03→20:07)
[2016-10-04] MEDS: FAMOTIDINE 20 MG TAB PO SCH ×2 (09:04→20:06)
[2016-10-04] MEDS: DOCUSATE SODIUM 50 MG/SENNA 8.6 MG TAB PO SCH ×2 (09:04→20:06)
[2016-10-04] MEDS: VALPROIC ACID 250 MG CAP PO SCH ×3 (09:04→17:49)
[2016-10-04] MEDS: THIAMINE HCL 100 MG TAB PO SCH (09:04)
[2016-10-04] MEDS: ENOXAPARIN SODIUM 40 MG/0.4 ML SYRINGE SQ SCH (11:02)
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
[2016-10-04] MEDS: MAGNESIUM HYDROXIDE SUSP 30 ML CUP PO SCH (20:06)
[2016-10-04] MEDS: HALOPERIDOL LACTATE 5 MG/ML AMP IV PRN (20:49)
[2016-10-05] VITALS (8 sets, daily range): BP systolic 111–143; BP diastolic 70–86; PULSE 74–94; RESP 18–25; TEMP 96.3–98.9; O2SAT 92–99
[2016-10-05] MEDS: HALOPERIDOL LACTATE 5 MG/ML AMP IV PRN (02:47)
[2016-10-05] MEDS: LACTULOSE SYRUP 20 GM/30 ML CUP PO SCH ×3 (06:00→17:36)
[2016-10-05] MEDS: ARTIFICIAL TEARS OPTH SOLN 15 ML BTL EACH EYE SCH ×3 (06:34→22:01)
[2016-10-05 07:46] LABS: AUTOMATED NEUTROPHIL # 7.3 TH/MM3 (1.8-7.7); BASOPHIL # 0.1 TH/MM3 (0-0.2); BASOPHIL % 0.5 % (0.0-2.0); EOSINOPHIL # 0.4 TH/MM3 (0-0.4); EOSINOPHIL % 3.2 % (0.0-4.0); HEMATOCRIT 36.3 % (39.0-51.0); HEMO FLAGS DIFF FINAL; LYMPH % 17.2 % (9.0-44.0); LYMPHOCYTE # 1.9 TH/MM3 (1.0-4.8); MEAN CELL VOLUME 87.2 FL (80.0-100.0); MEAN CORPUSCULAR HEMOGLOBIN 29.6 PG (27.0-34.0); MEAN CORPUSCULAR HGB CONC 33.9 % (32.0-36.0); MONO % 11.4 % (0.0-8.0); NEUT % 67.7 % (16.0-70.0); PLATELET COUNT 419 TH/MM3 (150-450); RED BLOOD COUNT 4.17 MIL/MM3 (4.50-5.90); RED CELL DISTRIBUTION WIDTH 13.8 % (11.6-17.2); WHITE BLOOD COUNT 10.8 TH/MM3 (4.0-11.0)
[2016-10-05 07:57] LABS: ALT (GPT) 51 U/L (12-78); ANION GAP 5 MEQ/L (5-15); AST (GOT) 30 U/L (15-37); BICARBONATE 31.3 MEQ/L (21.0-32.0); BLOOD UREA NITROGEN 9 MG/DL (7-18); CHLORIDE 101 MEQ/L (98-107); GLOMERULAR FILTRATION RATE 136 ML/MIN (>89); MAGNESIUM 2.4 MG/DL (1.5-2.5); POTASSIUM 3.8 MEQ/L (3.5-5.1); SODIUM (NA) 137 MEQ/L (136-145)
[2016-10-05 07:59] LABS: ALKALINE PHOSPHATASE 93 U/L (45-117); TOTAL BILIRUBIN ADULT 0.4 MG/DL (0.2-1.0)
[2016-10-05] MEDS: CHLORHEXIDINE 0.12% (ORAL KIT) 15 ML CUP MT SCH ×2 (08:00→22:00)
[2016-10-05] MEDS ORDERED: LACTULOSE SYRUP 20 GM/30 ML CUP PO SCH (09:00)
[2016-10-05] MEDS: BISACODYL 10 MG SUPP RECTAL SCH (09:00)
[2016-10-05] MEDS: SODIUM CHLORIDE 0.9% FLUSH 5 ML FLUSH IVF SCH ×2 (09:00→22:00)
[2016-10-05] MEDS: OLANZapine ODT 10 MG TAB PO SCH ×2 (09:00→17:35)
[2016-10-05] MEDS: THIAMINE HCL 100 MG TAB PO SCH (09:32)
[2016-10-05] MEDS: DOCUSATE SODIUM 50 MG/SENNA 8.6 MG TAB PO SCH ×2 (09:32→22:00)
[2016-10-05] MEDS: FAMOTIDINE 20 MG TAB PO SCH ×2 (09:32→22:01)
[2016-10-05] MEDS: VALPROIC ACID 250 MG CAP PO SCH ×3 (09:32→17:36)
[2016-10-05] MEDS: ENOXAPARIN SODIUM 40 MG/0.4 ML SYRINGE SQ SCH (10:49)
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
[2016-10-05] MEDS: MAGNESIUM HYDROXIDE SUSP 30 ML CUP PO SCH (22:01)
[2016-10-06] VITALS (7 sets, daily range): BP systolic 107–152; BP diastolic 66–90; PULSE 68–102; RESP 18; TEMP 95.6–98.3; O2SAT 92–98
[2016-10-06] MEDS: OLANZapine ODT 10 MG TAB PO SCH ×3 (01:06→17:29)
[2016-10-06] MEDS: LACTULOSE SYRUP 20 GM/30 ML CUP PO SCH ×4 (06:00→17:34)
[2016-10-06] MEDS: ARTIFICIAL TEARS OPTH SOLN 15 ML BTL EACH EYE SCH ×3 (06:15→22:53)
[2016-10-06] MEDS ORDERED: MAGNESIUM CITRATE SOLN 300 ML BTL PO ONE (07:30)
[2016-10-06] MEDS: CHLORHEXIDINE 0.12% (ORAL KIT) 15 ML CUP MT SCH ×2 (08:00→22:53)
[2016-10-06] MEDS: THIAMINE HCL 100 MG TAB PO SCH (10:07)
[2016-10-06] MEDS: BISACODYL 10 MG SUPP RECTAL SCH (10:07)
[2016-10-06] MEDS: DOCUSATE SODIUM 50 MG/SENNA 8.6 MG TAB PO SCH ×2 (10:07→21:00)
[2016-10-06] MEDS: FAMOTIDINE 20 MG TAB PO SCH ×2 (10:07→22:47)
[2016-10-06] MEDS: SODIUM CHLORIDE 0.9% FLUSH 5 ML FLUSH IVF SCH ×2 (10:11→22:52)
[2016-10-06] MEDS: VALPROIC ACID 250 MG CAP PO SCH ×3 (10:22→17:29)
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
[2016-10-06] MEDS: ENOXAPARIN SODIUM 40 MG/0.4 ML SYRINGE SQ SCH (13:00)
[2016-10-06] MEDS: MAGNESIUM HYDROXIDE SUSP 30 ML CUP PO SCH (21:00)
[2016-10-06] MEDS: oxyCODONE HCL ORAL CONC 20 MG/ML SYRINGE PO PRN (22:47)
[2016-10-07] VITALS (8 sets, daily range): BP systolic 109–119; BP diastolic 66–73; PULSE 70–94; RESP 18–20; TEMP 97.5–98.9; O2SAT 93–99
[2016-10-07] MEDS: OLANZapine ODT 10 MG TAB PO SCH ×3 (01:39→20:47)
[2016-10-07] MEDS: LACTULOSE SYRUP 20 GM/30 ML CUP PO SCH ×4 (06:00→18:00)
[2016-10-07] MEDS: ARTIFICIAL TEARS OPTH SOLN 15 ML BTL EACH EYE SCH ×3 (06:12→20:48)
[2016-10-07] MEDS: CHLORHEXIDINE 0.12% (ORAL KIT) 15 ML CUP MT SCH ×2 (08:00→20:58)
[2016-10-07] MEDS: VALPROIC ACID 250 MG CAP PO SCH ×3 (08:50→18:00)
[2016-10-07] MEDS: SODIUM CHLORIDE 0.9% FLUSH 5 ML FLUSH IVF SCH ×2 (08:50→20:48)
[2016-10-07] MEDS: BISACODYL 10 MG SUPP RECTAL SCH (08:51)
[2016-10-07] MEDS: DOCUSATE SODIUM 50 MG/SENNA 8.6 MG TAB PO SCH ×2 (08:51→20:47)
[2016-10-07] MEDS: THIAMINE HCL 100 MG TAB PO SCH (08:51)
[2016-10-07] MEDS: FAMOTIDINE 20 MG TAB PO SCH ×2 (08:51→20:46)
[2016-10-07] MEDS: ENOXAPARIN SODIUM 40 MG/0.4 ML SYRINGE SQ SCH ×2 (12:00→12:58)
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
[2016-10-07] MEDS: MAGNESIUM HYDROXIDE SUSP 30 ML CUP PO SCH (20:47)
[2016-10-07] MEDS: oxyCODONE HCL ORAL CONC 20 MG/ML SYRINGE PO PRN (20:51)
[2016-10-08] VITALS (8 sets, daily range): BP systolic 106–127; BP diastolic 65–75; PULSE 74–104; RESP 18–20; TEMP 96.4–98.6; O2SAT 94–98
[2016-10-08] MEDS: LACTULOSE SYRUP 20 GM/30 ML CUP PO SCH ×5 (06:00→23:28)
[2016-10-08] MEDS: ARTIFICIAL TEARS OPTH SOLN 15 ML BTL EACH EYE SCH ×3 (06:30→21:48)
[2016-10-08] MEDS: CHLORHEXIDINE 0.12% (ORAL KIT) 15 ML CUP MT SCH ×2 (08:00→21:48)
[2016-10-08] MEDS: DOCUSATE SODIUM 50 MG/SENNA 8.6 MG TAB PO SCH ×2 (09:00→21:47)
[2016-10-08] MEDS: BISACODYL 10 MG SUPP RECTAL SCH (09:00)
[2016-10-08] MEDS: OLANZapine ODT 10 MG TAB PO SCH ×2 (09:36→21:48)
[2016-10-08] MEDS: VALPROIC ACID 250 MG CAP PO SCH ×3 (09:37→18:52)
[2016-10-08] MEDS: THIAMINE HCL 100 MG TAB PO SCH (09:37)
[2016-10-08] MEDS: FAMOTIDINE 20 MG TAB PO SCH ×2 (09:37→21:48)
[2016-10-08] MEDS: oxyCODONE HCL ORAL CONC 20 MG/ML SYRINGE PO PRN (09:38)
[2016-10-08] MEDS: SODIUM CHLORIDE 0.9% FLUSH 5 ML FLUSH IVF SCH ×2 (09:38→21:48)
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
[2016-10-08] MEDS: ENOXAPARIN SODIUM 40 MG/0.4 ML SYRINGE SQ SCH (15:00)
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
--- NOTE | 2016-10-08 19:29 | HHI.PR ---
Subjective Remarks s/p ORIF Lefort 1 maxillary fracture/right zmc fracture reconstruction of right orbital floor fracture with mesh closed reduction of nasal bone fractures pt seen and examined., trach cap halo in place sitting in chair, talking, tolerating po Objective Vital Signs Date Time Temp Pulse Resp B/P Pulse Ox O2 Delivery O2 Flow Rate FiO2 10/08/16 16:00 97.3 96 20 106/65 98 10/08/16 12:00 96.4 88 20 110/69 97 10/08/16 11:44 97 Trach Collar 35 10/08/16 08:00 97.4 76 20 118/67 94 10/08/16 04:36 97.7 74 18 127/73 98 10/08/16 00:50 97.2 104 18 111/75 98 10/07/16 21:50 99 T-piece 6.00 35 10/07/16 20:17 97.7 94 19 119/73 96 I/O 10/07/16 10/07/16 10/07/16 10/08/16 10/08/16 10/08/16 07:00 15:00 23:00 07:00 15:00 23:00 Intake Total 1000 ml 600 ml 240 ml 120 ml 480 ml Output Total 600 ml 1100 ml 1400 ml 600 ml 1000 ml Balance 400 ml -500 ml -1160 ml -480 ml -520 ml Intake Oral 1000 ml 600 ml 240 ml 120 ml 480 ml Output Urine Total 600 ml 1100 ml 1400 ml 600 ml 1000 ml # Bowel Movements 0 1 0 Result Diagram: 10/05/1613 10/05/16 0713 Objective Remarks significant decrease in facial edema, PERRLA, EOMI, + good visual acuity right lower eyelid turning inward facial/ nasal bones stable nose - airway patent no false point of motion maxilla, bite in occlusion/wears partial denture intraorally - tissues pink/well perfused all wound margins well approximated/sutures intact hemostatic all wounds no signs of infection bleeding pus edema Assessment and Plan Assessment and Plan s/p ORIF Lefort 1 maxillary fracture/right zmc fracture reconstruction of right orbital floor fracture with mesh closed reduction of nasal bone fractures continue supportive care massage to lower eyelid shown will follow Isael Lindsey DMD Oct 08, 2016 19:29
[2016-10-08] MEDS: MAGNESIUM HYDROXIDE SUSP 30 ML CUP PO SCH (21:47)
[2016-10-09] VITALS (9 sets, daily range): BP systolic 104–121; BP diastolic 62–75; PULSE 70–94; RESP 18–20; TEMP 97.3–98.2; O2SAT 93–98
[2016-10-09] MEDS: LACTULOSE SYRUP 20 GM/30 ML CUP PO SCH ×3 (05:03→18:00)
[2016-10-09] MEDS: ARTIFICIAL TEARS OPTH SOLN 15 ML BTL EACH EYE SCH ×3 (05:04→21:09)
--- NOTE | 2016-10-09 07:26 | RADRPT ---
EXAM DATE/TIME: 10/09/2016 06:48 [place] COMPARISON: CHEST SINGLE AP, October 01, 2016, 3:35. INDICATIONS : Short of breath, follow up trauma MEDICAL HISTORY : c-spine fracture SURGICAL HISTORY : cervical halo ENCOUNTER: Subsequent ACUITY: 2 weeks PAIN SCORE: 0/10 LOCATION: Bilateral chest FINDINGS: A single view of the chest demonstrates bibasilar densities. Halo brace noted. Tracheostomy tube unch anged.. The cardiomediastinal contours are unremarkable. Osseous structures are intact. CONCLUSION: Persistent bibasilar densities likely atelectasis. Willian Houston MD on October 09, 2016 at 7:24 Board Certified Radiologist. This report was verified electronically.
[2016-10-09] MEDS: BISACODYL 10 MG SUPP RECTAL SCH (08:23)
[2016-10-09] MEDS: VALPROIC ACID 250 MG CAP PO SCH ×3 (08:23→18:58)
[2016-10-09] MEDS: CHLORHEXIDINE 0.12% (ORAL KIT) 15 ML CUP MT SCH ×2 (08:23→21:09)
[2016-10-09] MEDS: OLANZapine ODT 10 MG TAB PO SCH ×2 (08:24→21:09)
[2016-10-09] MEDS: DOCUSATE SODIUM 50 MG/SENNA 8.6 MG TAB PO SCH ×2 (08:24→21:09)
[2016-10-09] MEDS: THIAMINE HCL 100 MG TAB PO SCH (08:24)
[2016-10-09] MEDS: FAMOTIDINE 20 MG TAB PO SCH ×2 (08:24→21:09)
[2016-10-09] MEDS: SODIUM CHLORIDE 0.9% FLUSH 5 ML FLUSH IVF SCH ×2 (08:27→21:08)
[2016-10-09 09:12] LABS: AUTOMATED NEUTROPHIL # 5.4 TH/MM3 (1.8-7.7); BASOPHIL # 0.1 TH/MM3 (0-0.2); BASOPHIL % 0.9 % (0.0-2.0); EOSINOPHIL # 0.5 TH/MM3 (0-0.4); EOSINOPHIL % 5.2 % (0.0-4.0); HEMATOCRIT 36.2 % (39.0-51.0); HEMO FLAGS DIFF FINAL; LYMPH % 21.5 % (9.0-44.0); LYMPHOCYTE # 1.9 TH/MM3 (1.0-4.8); MEAN CORPUSCULAR HEMOGLOBIN 30.6 PG (27.0-34.0); MEAN CORPUSCULAR HGB CONC 35.1 % (32.0-36.0); MONO % 12.2 % (0.0-8.0); NEUT % 60.2 % (16.0-70.0); PLATELET COUNT 585 TH/MM3 (150-450); RED BLOOD COUNT 4.16 MIL/MM3 (4.50-5.90); RED CELL DISTRIBUTION WIDTH 13.7 % (11.6-17.2)
--- NOTE | 2016-10-09 09:21 | HHI.PR ---
Subjective Remarks Pt c/o irritation in right eye. Says it feels like a foreign body sensation "like a mesh rubbing against the outer corner of my eye." Objective Vital Signs Date Time Temp Pulse Resp B/P Pulse Ox O2 Delivery O2 Flow Rate FiO2 10/09/16 08:00 98.1 70 18 107/71 93 10/09/16 04:00 97.3 89 18 111/69 96 10/09/16 02:00 98 Trach Collar 5.00 28 10/09/16 00:00 98.2 75 18 121/73 95 10/08/16 20:00 98.6 89 18 113/74 96 10/08/16 19:55 96 Trach Collar 10/08/16 16:00 97.3 96 20 106/65 98 10/08/16 12:00 96.4 88 20 110/69 97 10/08/16 11:44 97 Trach Collar 35 I/O 10/08/16 10/08/16 10/08/16 10/09/16 10/09/16 10/09/16 07:00 15:00 23:00 07:00 15:00 23:00 Intake Total 120 ml 480 ml 240 ml 720 ml Output Total 600 ml 1000 ml 900 ml Balance -480 ml -520 ml 240 ml -180 ml Intake Oral 120 ml 480 ml 240 ml 720 ml Output Urine Total 600 ml 1000 ml 900 ml # Voids 2 1 # Bowel Movements 0 0 Result Diagram: 10/05/1613 10/05/1613 Objective Remarks Va 20/25 OU Pupils 3-2 OU, no APD EOM full OU OD - lower eyelid entropion, conj injection temporally, cornea clear, AC deep, lens clear Assessment and Plan Problem List: (1) Entropion and trichiasis of right eyelid Status: Acute Plan: Secondary to right orbital fracture repair. Epilated lashes on lower eyelid. Recommend lacrilube ointment to OD QID, and contacting , who did orbital fracture repair. Angie Kang MD Oct 09, 2016 09:21
[2016-10-09 09:30] LABS: ALKALINE PHOSPHATASE 125 U/L (45-117); ALT (GPT) 34 U/L (12-78); ANION GAP 7 MEQ/L (5-15); AST (GOT) 18 U/L (15-37); BICARBONATE 32.9 MEQ/L (21.0-32.0); BLOOD UREA NITROGEN 10 MG/DL (7-18); CHLORIDE 97 MEQ/L (98-107); GLOMERULAR FILTRATION RATE 107 ML/MIN (>89); SODIUM (NA) 137 MEQ/L (136-145); TOTAL BILIRUBIN ADULT 0.3 MG/DL (0.2-1.0)
[2016-10-09] MEDS: ENOXAPARIN SODIUM 40 MG/0.4 ML SYRINGE SQ SCH (12:39)
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
[2016-10-09] MEDS: MAGNESIUM HYDROXIDE SUSP 30 ML CUP PO SCH (21:08)
[2016-10-10] VITALS (8 sets, daily range): BP systolic 101–130; BP diastolic 60–73; PULSE 68–85; RESP 18; TEMP 96.8–98.7; O2SAT 93–98
[2016-10-10] MEDS: LACTULOSE SYRUP 20 GM/30 ML CUP PO SCH ×5 (00:21→23:41)
[2016-10-10] MEDS: ARTIFICIAL TEARS OPTH SOLN 15 ML BTL EACH EYE SCH ×3 (05:16→23:03)
[2016-10-10] MEDS: CHLORHEXIDINE 0.12% (ORAL KIT) 15 ML CUP MT SCH ×2 (08:00→20:48)
[2016-10-10] MEDS: THIAMINE HCL 100 MG TAB PO SCH (08:49)
[2016-10-10] MEDS: DOCUSATE SODIUM 50 MG/SENNA 8.6 MG TAB PO SCH ×2 (08:49→20:48)
[2016-10-10] MEDS: FAMOTIDINE 20 MG TAB PO SCH ×2 (08:49→20:48)
[2016-10-10] MEDS: OLANZapine ODT 10 MG TAB PO SCH ×2 (08:49→20:48)
[2016-10-10] MEDS: BISACODYL 10 MG SUPP RECTAL SCH (08:50)
[2016-10-10] MEDS: SODIUM CHLORIDE 0.9% FLUSH 5 ML FLUSH IVF SCH ×2 (08:50→20:48)
[2016-10-10] MEDS: VALPROIC ACID 250 MG CAP PO SCH ×3 (10:06→17:44)
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
[2016-10-10] MEDS: ENOXAPARIN SODIUM 40 MG/0.4 ML SYRINGE SQ SCH (12:48)
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
[2016-10-10] MEDS: oxyCODONE HCL ORAL CONC 20 MG/ML SYRINGE PO PRN (20:47)
[2016-10-10] MEDS: MAGNESIUM HYDROXIDE SUSP 30 ML CUP PO SCH ×2 (20:48→20:49)
[2016-10-11] VITALS: BP 106/67; PULSE 77; RESP 18; TEMP 98.4; O2SAT 98
[2016-10-11 04:00] VITALS: BP 123/77; PULSE 78; RESP 18; TEMP 97.6; O2SAT 93
[2016-10-11] MEDS: oxyCODONE HCL ORAL CONC 20 MG/ML SYRINGE PO PRN (04:25)
[2016-10-11] MEDS: LACTULOSE SYRUP 20 GM/30 ML CUP PO SCH (05:44)
[2016-10-11] MEDS: ARTIFICIAL TEARS OPTH SOLN 15 ML BTL EACH EYE SCH (05:44)
[2016-10-11] MEDS: CHLORHEXIDINE 0.12% (ORAL KIT) 15 ML CUP MT SCH (08:00)
[2016-10-11] MEDS ORDERED: BISA10R RECTAL (08:06)
[2016-10-11] MEDS ORDERED: VALP250 PO (08:06)
[2016-10-11] MEDS ORDERED: LACT10SO PO (08:06)
[2016-10-11] MEDS ORDERED: SENN1TAB PO (08:06)
[2016-10-11] MEDS ORDERED: OXYC-392 PO (08:06)
[2016-10-11] MEDS ORDERED: ENOX40P SQ (08:06)
[2016-10-11] MEDS ORDERED: MILKSUS PO (08:06)
[2016-10-11] MEDS ORDERED: OXYC1CON3 PO (08:06)
[2016-10-11] MEDS ORDERED: FAMO20TA2 PO (08:06)
[2016-10-11] MEDS ORDERED: OLANZ10 PO (08:06)
[2016-10-11 08:17] VITALS: BP 109/69; PULSE 76; RESP 18; TEMP 96.4; O2SAT 96
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
[2016-10-11] MEDS: BISACODYL 10 MG SUPP RECTAL SCH (09:00)
[2016-10-11] MEDS: OLANZapine ODT 10 MG TAB PO SCH (09:15)
[2016-10-11] MEDS: SODIUM CHLORIDE 0.9% FLUSH 5 ML FLUSH IVF SCH (09:15)
[2016-10-11] MEDS: DOCUSATE SODIUM 50 MG/SENNA 8.6 MG TAB PO SCH (09:16)
[2016-10-11] MEDS: THIAMINE HCL 100 MG TAB PO SCH (09:16)
[2016-10-11] MEDS: VALPROIC ACID 250 MG CAP PO SCH (09:16)
[2016-10-11] MEDS: FAMOTIDINE 20 MG TAB PO SCH (09:16)
--- NOTE | 2016-10-11 11:02 | HHI.PR ---
Subjective Remarks s/p ORIF Lefort 1 maxillary fracture/right zmc fracture reconstruction of right orbital floor fracture with mesh closed reduction of nasal bone fractures pt seen and examined., trach cap halo in place in bed today talking, tolerating po, reports right eye [place] sometimes, reports massaging the right lower eyelid few times only, pt was instructed to message right lower eyelid/area several time a day and shown how to do it Objective Vital Signs Date Time Temp Pulse Resp B/P Pulse Ox O2 Delivery O2 Flow Rate FiO2 10/11/16 08:17 96.4 76 18 109/69 96 10/11/16 04:00 97.6 78 18 123/77 93 10/11/16 00:00 98.4 77 18 106/67 98 10/10/16 20:00 98.7 80 18 101/60 98 10/10/16 17:15 96 21 10/10/16 16:00 97.1 68 18 112/73 96 10/10/16 12:00 96.8 69 18 108/73 93 I/O 10/10/16 10/10/16 10/10/16 10/11/16 10/11/16 10/11/16 07:00 15:00 23:00 07:00 15:00 23:00 Intake Total 960 ml 480 ml 480 ml Output Total 850 ml 1000 ml Balance 110 ml -520 ml 480 ml Intake Oral 960 ml 480 ml 480 ml Output Urine Total 850 ml 1000 ml # Voids 7 4 Result Diagram: 10/09/16 0830 10/09/16 0830 Objective Remarks No gross facial edema, PERRLA, EOMI, + good visual acuity right lower eyelid turning inward, no signs of infection bleeding pus edema, conjunctiva appears normal right orbital rim fracture/reduction stable facial/ nasal bones stable nose - airway patent no false point of motion maxilla, bite in occlusion/wears partial denture intraorally - tissues pink/well perfused all wound margins well approximated/sutures intact hemostatic all wounds no signs of infection bleeding pus edema Assessment and Plan Assessment and Plan s/p ORIF Lefort 1 maxillary fracture/right zmc fracture reconstruction of right orbital floor fracture with mesh closed reduction of nasal bone fractures fractures stable continue supportive care non compliant - advised/instructed patient again to massage lower eyelid several time a day, shown again downward/circular motion to help maye the lid will follow Isael Lindsey DMD Oct 11, 2016 11:02
[2016-10-16] MEDS ORDERED: OLANZ10 PO (10:54)
[2016-10-16] MEDS ORDERED: VITA100T2 PO (10:54)
[2016-10-16] MEDS ORDERED: OXYC-392 PO (10:54)
[2016-10-16] MEDS ORDERED: SENN1TAB PO (10:54)
[2016-10-16] MEDS ORDERED: FAMO20TA2 PO (10:54)
[2016-10-16] MEDS ORDERED: THERTAB15 PO (10:54)
[2016-10-16] MEDS ORDERED: Artificial Tears Opth Soln EACH EYE (10:54)
[2016-10-16] MEDS ORDERED: VALP250 PO (10:54)
== END 2016-10-11 11:19 | DRG 3 ==
LOC: NEPI 19:15 → NEDA 19:36 → EDBD 19:36 → N03B 19:52 → N05A 10-05 03:30
PROVIDERS: ADMIT Surgery; ATTEND Surgery
PROC: 5A1955Z Respiratory Ventilation, Greater than 96 Consecutive Hours (ICD-10-PCS; 2016-09-22)
PROC: 0BH17EZ Insertion of Endotracheal Airway into Trachea, Via Natural or Artificial Opening (ICD-10-PCS; 2016-09-22)
PROC: 2W60X0Z Traction of Head using Traction Apparatus (ICD-10-PCS; 2016-09-23)
PROC: 0B110F4 Bypass Trachea to Cutaneous with Tracheostomy Device, Open Approach (ICD-10-PCS; principal; 2016-09-24 21:02)
PROC: 0NH Head and Facial Bones, Insertion (ICD-10-PCS; 2016-09-25)
PROC: 0NSS04Z (ICD-10-PCS; 2016-09-25)
PROC: 0NSR04Z Reposition Maxilla with Internal Fixation Device, Open Approach (ICD-10-PCS; 2016-09-25)
PROC: 0NSM04Z Reposition Right Zygomatic Bone with Internal Fixation Device, Open Approach (ICD-10-PCS; 2016-09-25)
PROC: 0NSBXZZ Reposition Nasal Bone, External Approach (ICD-10-PCS; 2016-09-25)
PROC: 0BJ08ZZ Inspection of Tracheobronchial Tree, Via Natural or Artificial Opening Endoscopic (ICD-10-PCS; 2016-09-30)
DX: S06.4X9A Epidural hemorrhage with loss of consciousness of unspecified duration, initial encounter (principal); S12.100A Unspecified displaced fracture of second cervical vertebra, initial encounter for closed fracture; S12.200A Unspecified displaced fracture of third cervical vertebra, initial encounter for closed fracture; S12.300A Unspecified displaced fracture of fourth cervical vertebra, initial encounter for closed fracture; E87.0 Hyperosmolality and hypernatremia; S36.030A Superficial (capsular) laceration of spleen, initial encounter; S22.059A Unspecified fracture of T5-T6 vertebra, initial encounter for closed fracture; S22.21XA Fracture of manubrium, initial encounter for closed fracture; D68.8 Other specified coagulation defects; S27.322A Contusion of lung, bilateral, initial encounter; S12.400A Unspecified displaced fracture of fifth cervical vertebra, initial encounter for closed fracture; J96.01 Acute respiratory failure with hypoxia; S22.42XA Multiple fractures of ribs, left side, initial encounter for closed fracture; S32.049A Unspecified fracture of fourth lumbar vertebra, initial encounter for closed fracture; S32.059A Unspecified fracture of fifth lumbar vertebra, initial encounter for closed fracture; S06.5X9A Traumatic subdural hemorrhage with loss of consciousness of unspecified duration, initial encounter; S02.40EA Zygomatic fracture, right side, initial encounter for closed fracture; S02.0XXA Fracture of vault of skull, initial encounter for closed fracture; S02.31XA Fracture of orbital floor, right side, initial encounter for closed fracture; S06.2X9A Diffuse traumatic brain injury with loss of consciousness of unspecified duration, initial encounter; S02.411A LeFort I fracture, initial encounter for closed fracture; S40.211A Abrasion of right shoulder, initial encounter; S02.2XXA Fracture of nasal bones, initial encounter for closed fracture; S01.81XA Laceration without foreign body of other part of head, initial encounter; S50.811A Abrasion of right forearm, initial encounter; S80.211A Abrasion, right knee, initial encounter; S50.812A Abrasion of left forearm, initial encounter; S60.512A Abrasion of left hand, initial encounter; R40.2432 Glasgow coma scale score 3-8, at arrival to emergency department; R00.1 Bradycardia, unspecified; R73.9 Hyperglycemia, unspecified; S02.5XXA Fracture of tooth (traumatic), initial encounter for closed fracture; E87.6 Hypokalemia; E83.39 Other disorders of phosphorus metabolism; D64.9 Anemia, unspecified; D72.829 Elevated white blood cell count, unspecified; R45.1 Restlessness and agitation; J98.09 Other diseases of bronchus, not elsewhere classified; H02.001 Unspecified entropion of right upper eyelid; F10.129 Alcohol abuse with intoxication, unspecified; F12.90 Cannabis use, unspecified, uncomplicated; F17.200 Nicotine dependence, unspecified, uncomplicated; V28.4XXA Motorcycle driver injured in noncollision transport accident in traffic accident, initial encounter; Y90.3 Blood alcohol level of 60-79 mg/100 ml; Y92.411 Interstate highway as the place of occurrence of the external cause; Z91.19 Patient's noncompliance with other medical treatment and regimen
CPT/HCPCS: 31500; 36600; 70450; 70486; 71010; 71260; 72020; 72125; 72128; 72131; 72170; 74000; 74177; 76377; 76937; 80048; 80053; 80076; 80307; 81001; 82435; 82550; 82552; 82565; 82805; 82947; 82948; 83735; 84100; 84132; 84295; 84443; 84484; 84520; 85007; 85025; 85027; 85384; 85610; 85730; 86850; 86900; 86901; 86920; 90471; 90715; 93005; 93306; 94002; 94003; 94640; 94664; 95819; 96374; 96375; 99291; A7520; C1713; C9113; G0390; J0295; J0690; J1040; J1100; J1170; J1630; J1650; J1940; J2060; J2250; J2270; J2405; J2765; J2930; J3010; J3480; J7030; J7050; J7120; J7613; L0150; L0172; L0810; Q9967